=== PATIENT | male | born 1960 | race Caucasian/White ===

== ENCOUNTER → 2020-06-25 13:19 | Outpatient (BNVA) | payer MEDICARE, MEDICAID, SELFPAY | PROVIDERS: PCP Pediatrics; Visit Provider Internal Medicine | DX: E11.65 Type 2 diabetes mellitus with hyperglycemia (principal); E78.5 Hyperlipidemia, unspecified; I10 Essential (primary) hypertension; E55.9 Vitamin D deficiency, unspecified; Z79.4 Long term (current) use of insulin | CPT/HCPCS: 82947; 99202 ==

== ENCOUNTER 2021-08-18 09:04 | Outpatient (REF) | payer MEDICARE, MEDICAID, SELFPAY ==
--- NOTE | 2021-08-18 09:09 | EMG_ITS ---
This is a 60-year-old man with 2-month history of bilateral lower extremity numbness in his toes, which feel frozen. He has a long history of diabetes for 25 years. PHYSICAL EXAMINATION: He is alert and oriented, walks with a cane. He is very uncomfortable. He has absent reflexes in the lower extremities and some atrophy of the foot muscles. IMPRESSION: Peripheral neuropathy. Nerve conduction EMG study: Moderately severe axonal, sensory greater than motor, peripheral neuropathy in the lower extremities diffusely. EMG of the left L4-S1 innervated muscles, is consistent with chronic distal neuropathic changes. MD TISHA Fierro/CARA / [id number]
== END 2021-08-18 09:05 | disposition home or self-care (01) ==
LOC: HO.NEURO 09:04
PROVIDERS: PCP Pediatrics; Visit Provider Internal Medicine
DX: R20.0 Anesthesia of skin (principal); E11.9 Type 2 diabetes mellitus without complications
CPT/HCPCS: 95885; 95911

== ENCOUNTER 2023-01-06 10:17 | Outpatient (REF) | payer MEDICARE, MEDICAID, SELFPAY ==
[2023-01-06 14:17] LABS: MANUAL DIFF FLAG NO
[2023-01-06 14:24] LABS: Basophils Absolute Auto 0.1 X10*3/uL (0.0-0.2); Eosinophils Absolute Auto 0.1 X10*3/uL (0.0-0.4); Eosinophils Percent Auto 1.5 % (0-4); Hematocrit 43.9 % (42.0-52.0); Hemoglobin 13.6 g/dl (14.0-18.0); Imm Gran Abs Auto 0.03 X10*3/uL (0.00-0.03); Imm Gran Pct Auto 0.3 % (0.0-0.4); Lymphocytes Absolute Auto 2.3 X10*3/uL (1.2-4.9); Lymphocytes Percent Auto 24.3 % (20-40); Mean Corpuscular Hemoglobin 24.7 pg (27.0-33.0); Mean Corpuscular Volume 79.8 fL (80.0-98.0); Mean Platelet Volume 11.3 fL (9.4-12.4); Monocytes Absolute Auto 0.5 X10*3/uL (0.1-1.2); Neutrophils Absolute Auto 6.5 x10*3/uL (2.0-8.3); Neutrophils Percent Auto 67.9 % (45-73); Platelet Count 287 X10*3/uL (160-400); Red Cell Distribution Width 14.8 % (11.0-16.0); White Blood Count 9.6 X10*3/uL (4.8-10.8)
[2023-01-06 15:24] LABS: Prostate Specific Antigen 0.61 ng/mL (<0.05-4.0); Vitamin B12 413 pg/mL (200-900)
[2023-01-06 15:29] LABS: Alanine Aminotransferase 28 U/L (0-40); Albumin Level 4.2 g/dL (3.5-5.0); Alkaline Phosphatase 102 U/L (39-117); Anion Gap 21 (12-20); Aspartate Amino Transferase 37 U/L (5-37); Bilirubin Direct 0.2 mg/dL (0.0-0.5); Blood Urea Nitrogen 20 mg/dL (9-16); Calcium 9.9 mg/dL (8.4-10.2); Carbon Dioxide 20 mmol/L (22-29); Chloride 101 mmol/L (96-108); Estimated Glomerular Filt Rate > 60; Glucose Random 197 mg/dL (60-115); Potassium 4.3 mmol/L (3.3-5.1); Sodium 138 mmol/L (135-145); TSH reflex Free T4 1.85 uIU/mL (0.32-4.0); Total Protein 7.4 g/dL (6.5-8.0)
[2023-01-06 15:40] LABS: Bilirubin Total 0.6 mg/dL (0.0-1.0)
== END 2023-01-06 10:18 | disposition home or self-care (01) ==
LOC: HO.CHCLDS 10:17
PROVIDERS: Visit Provider Pediatrics
DX: Z12.5 Encounter for screening for malignant neoplasm of prostate (principal); E11.43 Type 2 diabetes mellitus with diabetic autonomic (poly)neuropathy; Z79.4 Long term (current) use of insulin
CPT/HCPCS: 36415; 80048; 80076; 82607; 84153; 84443; 85025

== ENCOUNTER 2023-01-17 11:33 | Outpatient (REF) | payer MEDICARE, MEDICAID, SELFPAY ==
[2023-01-17 14:31] LABS: Appearance Urine Clear; Color Urine Yellow; Glucose Urine UA >=1000 mg/dL (Negative); Leukocyte Esterase Urine Negative (Negative); Nitrite Urine Negative (Negative); PH 5.5 (5.0-9.0); Specific Gravity - Urine >= 1.030 (1.005-1.025); UMIC TRIGGER UA YES; Urine Blood Negative (Negative); Urine Ketones Trace mg/dL (Negative); Urine Protein Negative (Neg-Trace)
[2023-01-17 14:42] LABS: Bacteria Urine None Seen (None Seen); Hyaline Casts Urine 0-2 /LPF (0-2); RBC Urine 0-2 /HPF (0-2); Squamous Epithelial Cell Urine 0-2 /HPF (0-2); WBC Urine 0-5 /HPF (0-5)
== END 2023-01-17 11:34 | disposition home or self-care (01) ==
LOC: HO.CHCLNP 11:33
PROVIDERS: Visit Provider Pediatrics
DX: R41.82 Altered mental status, unspecified (principal)
CPT/HCPCS: 81001; 87086

== ENCOUNTER 2023-04-14 11:08 | Outpatient (REF) | payer MEDICARE, MEDICAID, SELFPAY ==
[2023-04-17 05:11] LABS: HBS Num1 0.19 mIU/mL (0-7.99); HBsAGNum1 0.43 S/CO (0.00-0.99); Hepatitis B Core Antibody Nonreactive (Nonreactive); Hepatitis B Surface Antigen Negative (Negative); ~HepC Num1 0.11 S/CO (0.00-0.79); ~Hepatitis A Antibody IgM Nonreactive (Nonreactive); ~Hepatitis B Surface Antibody NONREACTIVE (Nonreactive); ~Hepatitis C Antibody Nonreactive (Nonreactive)
[2023-04-17 22:58] LABS: Rubella IgG Antibody 1.07 Index
== END 2023-04-14 11:09 | disposition home or self-care (01) ==
LOC: HO.CHCLDS 11:08
PROVIDERS: Family Medicine; Visit Provider Pediatrics
DX: Z01.84 Encounter for antibody response examination (principal); Z11.59 Encounter for screening for other viral diseases; Z72.89 Other problems related to lifestyle
CPT/HCPCS: 36415; 86704; 86706; 86709; 86735; 86762; 86765; 86787; 86803; 87340

== ENCOUNTER 2024-08-09 11:57 | Outpatient (REF) | payer MEDICARE, MEDICAID, SELFPAY ==
--- OUTSIDE RECORDS SUMMARY | 2024-08-09 14:16 | XMS_ITS | Encounter Summary ---
Author Organization [employer] Address [address] [facility] 7t [place] [address] Care Team Providers Care Rapid Transit Operator Name Role Phone Cristela Hill MD Primary Care Provider [phone] Reason for Visit * Reason Onset Date Comments ER Follow-up 05/22/2023 Encounter Details Date Type Department Care Team ([facility] Contact Info) Description 05/22/2023 Telephone [facility] [address] [place] [address] Cristela Hill MD [address] [place] [address] ER Follow-up Social History Tobacco Use Types Packs/Day Years Used Date Smoking Tobacco: Never Passive Smoke Exposure: Never Smokeless Tobacco: Never Alcohol Use Standard Drinks/Week Comments Never 0 (1 standard drink = 0.6 oz pur e alcohol) Depression Answer Date Recorded Patient Health Questionnaire-9 Score 0 06/22/2022 Housing Stability Answer Date Recorded What is your housing situation today? I have jacqeus bai 03/28/[address] you li ve. Do you have problems with any of the following? None of the above 03/28/2023 Food Insecurity Answer Date Recorded Within the past 12 months, y ou worried that your food would run out before you got money to buy more: Never True 03/28/2023 Within the past 12 months,th e food you bought just didn't last and you didn't have enough money to get more: Never True Transportation Answer Date Recorded In the past 12 months, has l ack of transportation kept you from medical appts, meetings, work or from getting things needed for daily living? No 03/28/2023 Utilities Answer Date Recorded In the past 12 months, has t he electric, gas, oil or water company threatened to shut off services in your home? No 03/28/2023 Depression Answer Date Recorded Patient Health Questionnaire-2 Score 0 06/22/2022 Sex and Gender Information Value Date Recorded Sex Assigned at Male 04/11/2022 10:16 AM EDT Legal Sex Male 10:16 AM EDT Gender Identity Male 04/11/2022 10:16 AM EDT Sexual Orientation Straight 04/11/2022 10 :16 AM EDT documented as of this encounter Miscellaneous Notes * Telephone Encounter - Nicole Luong RN - 05/23/2023 2:26 PM EST Returned call to Pancho at [facility] regarding message below. Pancho states pt needs to f/u with PCP regarding his recent ED visit on 05/19/23 for CP. Pt was instructed to f/u with Cardiology and Pancho is calling cardio now to schedule a f/u. Pancho requested pt to be seen sooner than 06/02/23 as pt needs other DME's as well. Pancho is requesting an rx for compression stockings, DM shoes, and a PT referral for W/C eval. Pancho informed message would be sent to PCP to get the process started prior to appt but advised Pancho to call office back if pt is in need of anything else. Pancho agrees with plan and agrees to sooner appt with PCP for 05/26/23. * Telephone Encounter - Per Mendiola - 05/22/2023 12:30 PM EST Tc from Estuardo calling from [facility] to report ED visit on : Date: 05/19/23 Hospital: [facility] Seen for: Chest Pain and cold sweats Any questions please contact Estuardo at [phone] documented in this encounter Plan of Treatment Not on file documented as of this encounter Visit Diagnoses Not on filedocumented in this encounter Additional Health Concerns Assessment Noted Time PHQ-9 Depression Total Score: 0 06/22/19 9:46 AM EST documented as of this encounter Care Teams Rapid Transit Operator Relationship Specialty Start Date End Date Cristela Hill MD [address] [place] [id number] PCP - General Family Medicine 06/12/18 [facility] 12/31/11 documented as of this encounter
--- OUTSIDE RECORDS SUMMARY | 2024-08-09 14:16 | XMS_ITS | Encounter Summary ---
Author Organization [employer] Address [address] [facility] 7t [place] [address] Care Team Providers Care Bias Binding Folder Name Role Phone Cristela Hill MD Primary Care Provider [phone] Reason for Visit * Reason Onset Date Comments Call Back Request 06/28/2023 Encounter Details Date Type Department Care Team ([facility] Contact Info) Description 06/28/2023 Telephone [facility] PEDS [address] [place] [address] Cristela Hill MD [address] [place] [address] Call Back Request Social History Tobacco Use Types Packs/Day Years Used Date Smoking Tobacco: Never Passive Smoke Exposure: Never Smokeless Tobacco: Never Alcohol Use Standard Drinks/Week Comments Never 0 (1 standard drink = 0.6 oz pur e alcohol) Depression Answer Date Recorded Patient Health Questionnaire-9 Score 0 06/22/2022 Housing Stability Answer Date Recorded What is your housing situation today? I have jacques bai 03/28/[address] you [...] encounter Miscellaneous Notes * Telephone Encounter - Morelia García RN - 06/29/2023 5:01 PM EST TC placed back to Celina, caddie supervisor at [facility]. Celina states patient is feeling better and he is not sure how long patient is supposed to continue taking Mucinex. Advised that if patient is no longer coughing or having congestion, post-nasal drip, or runny nose without the medication, patient can likely stop taking it. However, as long as these symptoms continue, he may benefit from using it.Celina expressed understanding and stated that they got one refill automatically from the pharmacy but will ask the pharmacy to hold other refills for now as symptoms seem to be resolving. He is awarethat there are 11 refills if needed. No other questions or concerns. Routing to Dr. Hill so she is aware. Tc from celina with [facility] requesting a call in regards to Dextromethorphan- guaiFENesin (Mucinex DM) 30-600 MG tablet sustained-release 12 hour. Please contact celina at [phone] * Telephone Encounter - Charis Stearns - 06/28/2023 1:35 PM EST Tc from celina with [facility] requesting a call in regards to Dextromethorphan- guaiFENesin (Mucinex DM) 30-600 MG tablet sustained-release 12 hour. Please contact celina at [phone] documented in this encounter Plan of Treatment Not on file documented as of this encounter Visit Diagnoses Not on filedocumented in this encounter Additional Health Concerns Assessment Noted Time PHQ-9 Depression Total Score: 0 06/22/19 23 9:46 AM EST documented as of this encounter Care Teams Bias Binding Folder Relationship Specialty Start Date End Date Cristela Hill MD [address] [place] [address] PCP - General Family Medicine 06/12/18 [facility] 12/31/11 documented as of this encounter
--- OUTSIDE RECORDS SUMMARY | 2024-08-09 14:16 | XMS_ITS | Encounter Summary ---
Author Organization [employer] Address [address] [facility] 7 [place] [address] Care Team Providers Care Livestock Farm Manager Name Role Phone Cristela Hill MD Primary Care Provider [phone] Reason for Visit * Reason Onset Date Comments Durable Medical Equipment 06/24/2022 Encounter Details Date Type Department Care Team (Late st Contact Info) Description 06/24/2022 Telephone [facility] [address] [place] [address] Cristela Hill MD [address] [place] [address] Durable Medical Equipment Social History Tobacco Use Types Packs/Day Years Used Date Smoking Tobacco: Never Smokeless Tobacco: Never Alcohol Use Standard Drinks/Week Comments Never 0 (1 standard drink = 0.6 oz pur e alcohol) Depression Answer Date Recorded Patient Health Questionnaire-9 Score 0 06/22/2022 Depression Answer Date Recorded Patient Health Questionnaire-2 Score 0 06/22/2022 Sex and Gender Information Value Date Recorded Sex Assigned at Male 04/11/2022 10:16 AM EDT Legal Sex Male 10:16 AM EDT Gender Identity Male 04/11/2022 10:16 AM EDT Sexual Orientation Straight 04/11/2022 10 :16 AM EDT documented as of this encounter Miscellaneous Notes * Telephone Encounter - Earlene Carter LPN - 06/29/2022 10:30 AM EST Mobile Home Park Manager spoke with BRENDA Orona regarding message below pt is not requesting a lift chair but a recliner , pt will need notes of necessity for this DME and also DX for this ,pt is receiving a walkers with wheels from [facility] please advise * Telephone Encounter - Eliehilary Reeseos - 06/24/2022 3:03 PM EST Tc from ritu with [facility] requesting a lift chair, Ritu stated needs 2 dx and how long will pt will be needing it , ritu is requesting it to be sent to [facility] Please contact ritu at [phone] documented in this encounter Plan of Treatment Not on file documented as of this encounter Visit Diagnoses Not on filedocumented in this encounter Additional Health Concerns Assessment Noted Time PHQ-9 Depression Total Score: 0 06/22/19 23 9:46 AM EST documented as of this encounter Care Teams Livestock Farm Manager Relationship Specialty Start Date End Date Cristela Hill MD [address] [place] [id number] PCP - General Family Medicine 06/12/18 [facility] 12/31/11 documented as of this encounter
--- OUTSIDE RECORDS SUMMARY | 2024-08-09 14:16 | XMS_ITS | Encounter Summary ---
Author Organization [employer] Address [address] [place] [address] [address] [place] [address] Care Team Providers Care Mine Analyst Name Role Phone Cristela Hill MD Primary Care Provider [phone] Reason for Visit * Reason Onset Date Comments Medication Question 08/30/2022 Encounter Details Date Type Department Care Team ([facility] st Contact Info) Description 08/30/2022 Telephone [facility] MED & PEDS [address] [place] [address] Cristela Hill MD [address] [place] [address] Medication Question Social History Tobacco Use Types Packs/Day Years [...] Orientation Straight 04/11/2022 10 :16 AM EDT COVID-19 Exposure Response Date Recorded In the last 10 days, have yo u been in contact with someone who was confirmed or suspected to have Coronavirus/COVID-19? No / Unsure 09/02/2022 9:16 AM EDT documented as of this encounter Miscellaneous Notes * Telephone Encounter - Devin Stearns RN - 08/31/2022 9:28 AM EDT Call to Jie, visiting nurse. State during last office visit, Levemir was changed to 100 units in the AM and 20 units at bedtime if the sugars were above 200. She is requesting Rx be sent to pharmacyas pt is running out and she is also requesting syringes. Pt uses [facility]. Pt is scheduled for HDF on 09/02/22. In need of eliquis 5mg. Noted in office note from 06/2022, levemir 100mg in the AM, added 15 units at bedtime if blood sugars above 200. Per Jie, was present during the televisit and confirmed the order of 20 units at bedtime if sugarsabove 200, Advised will forward to PCP to clarify and send Rx to pharmacy as requested. * Telephone Encounter - Joseph Kellogg - 08/30/2022 1:48 PM EDT Tc from Jie informing that pt script was change for Levemir for twice a day and syringes as well and will need a new script down, Jie states that PCP was the one that change script. Please contact Jie for more information at [phone] documented in this encounter Plan of Treatment Not on file documented as of this encounter Visit Diagnoses Not on filedocumented in this encounter Additional Health Concerns Assessment Noted Time PHQ-9 Depression Total Score: 0 06/22/19 9:46 AM EST documented as of this encounter Care Teams Mine Analyst Relationship Specialty Start Date End Date Cristela Hill MD [address] [place] [id number] PCP - General Family Medicine 06/12/18 [facility] 12/31/11 documented as of this encounter
--- OUTSIDE RECORDS SUMMARY | 2024-08-09 14:16 | XMS_ITS | Encounter Summary ---
Author Organization [employer] Address [address] [facility] 7t [place] [address] Care Team Providers Care Head Grease Maker Name Role Phone Cristela Hill MD Primary Care Provider [phone] Reason for Visit * Reason Onset Date Comments Medication Question 05/10/2023 Encounter Details Date Type Department Care Team ([facility] Contact Info) Description 05/10/2023 Telephone [facility] MED & PEDS [address] [place] [address] Cristela Hill MD [address] [place] [address] Medication Question Social History Tobacco Use Types [...] Telephone Encounter - Nicole Luong RN - 05/11/2023 1:35 PM EST Order generated and sent to [facility]. Confirmation received. * Telephone Encounter - Arielle Chang - 05/11/2023 1:06 PM EST Tc from Cel[facility] returning call. Parts Counter Clerk informed previous notes. States will need a written notes stating it is okay to discontinue Eliquis. * Telephone Encounter - Nicole Luong RN - 05/10/2023 11:38 AM EST Returned call to A worker regarding PCP ok to discontinue Eliquis. LVM to return call to nurses. * Telephone Encounter - Charis Stearns - 05/10/2023 10:32 AM EST Tc from celina with [facility] requesting a call in regards to pt having an appointment with blackjack pit boss on 05/02. Pt was advised to stop taking eliquis and would like PCP opinion. Please contact celina at [phone] documented in this encounter Plan of Treatment Not on file documented as of this encounter Visit Diagnoses Not on filedocumented in this encounter Additional Health Concerns Assessment Noted Time PHQ-9 Depression Total Score: 0 06/22/19 23 9:46 AM EST documented as of this encounter Care Teams Head Grease Maker Relationship Specialty Start Date End Date Cristela Hill MD [address] [place] [address] PCP - General Family Medicine 06/12/18 [facility] 12/31/11 documented as of this encounter
--- OUTSIDE RECORDS SUMMARY | 2024-08-09 14:16 | XMS_ITS | Clinical Summary ---
Author Organization [employer] Address [address] [facility] [address] [place] [address] Care Team Providers Care Pattern Duplicator Name Role Phone Cristela Hill MD Primary Care Provider [phone] Allergies Active Allergy Reactions Criticality Noted Date Comments Chicken Allergy Rash Low 03/07/2022 Codeine Rash,Unknown Low 06/08/2010 Fish Allergy Rash Low 03/07/2022 Oxycodone Low 03/18/2022 Oxycodone-Acetaminophen Rash Low 07/10/2020 Shellfish Allergy 03/08/2022 lobster Medications sertraline (Zoloft) 100 MG tablet Take 100 mg by mouth in the morning. 023 Active albuterol 108 (90 Base) MCG/ACT inhaler TAKE 2 PUFFS EVERY 4 TO 6 HOURS NEEDED 022 Active ergocalciferol (Vitamin D2) 1.25 MG (46820 UT) capsule TAKE 1 CAPSULE BY ORAL ROUTE EVERY WEEK FOR 15 WEEKS 022 Active famotidine (Pepcid) 20 MG tablet TAKE 1 TABLET BY ORAL ROUTE 2 TIMES EVERY DAY 023 Active tamsulosin (Flomax) 0.4 MG 24 hr capsule TAKE 1 CAPSULE BY MOUTH EVERY DAY 023 Active calcipotriene (Dovonex) 0.005 % cream Apply topically 2 times daily. 60 g 3 023 Active Corlanor 5 MG tablet 023 Active glucose blood (FREESTYLE LITE) test strip Test blood sugar 3 times daily 100 each 11 023 Active bacitracin 500 UNIT/GM ointment Apply topically 2 times daily. 14 g 023 Active Insulin Syringe-Needle U-100 30G X 3/8 0.5 ML misc Use Tid for insulin injection 100 each Active dulaglutide (Trulicity) 1.5 MG/0.5ML solution pen-injector Inject 1.5 mg under the skin 1 (one) time per week. 4 each Active Alcohol Swabs (Alcohol Pads) 70 % pads Use tid when checking blood sugars 100 each Active nystatin (Nystop) 869246 UNIT/GM powderIndicati ons:Pruritic intertrigo Apply topically 2 times daily. 30 g 024 2024 Active ketoconazole (NIZOral) 2 % shampoo APPLY SMALL AMOUNT TO SCALP AND WASH HAIR THREE TIMES A WEEK 120 mL 1 Active Additional Information Patient not taking.Reported on 07/05/2024 metFORMIN XR (Glucophage-XR ) 500 MG 24 hr tablet TAKE 2 TABLETS BY MOUTH TWICE DAILY IN THE MORNING AND EVENING 120 tablet 5 Active Acetaminophen 500 MG capsule TAKE 1 CAPSULE BY MOUTH EVERY 8 HOURS IF NEEDED FOR PAIN OR FEVER 90 capsule 11 Active atorvastatin (Lipitor) 80 MG tablet TAKE 1 TABLET BY MOUTH EVERY DAY 90 tablet 1 Active aspirin 81 MG EC tabletIndicati ons:Type 2 diabetes mellitus with diabetic autonomic neuropathy, with long-term current use of insulin (CMS/HCC) Take 1 tablet (81 mg) by mouth Once per day. 90 tablet 3 Active nitroglycerin (Nitrostat) 0.[address] 1 tablet (0.4 mg) under the tongue every 5 (five) minutes if needed for chest pain. TAKE 1 TABLET BY SUBLINGUAL ROUTE EVERY 5 MINUTES NEEDED FOR CHEST PAIN NEEDED MAX 3 TIMES , IF NO RELIEF CALL 911 25 tablet 11 024 2024 Active gabapentin (Neurontin) 300 MG capsule Take 1 capsule orally at bedtime for neuropathy 30 capsule 5 024 Active Comfort Touch Plus Lancets 30G miscIndication s:Type 2 diabetes mellitus with diabetic autonomic neuropathy, with long-term current use of insulin (CMS/HCC) USE 1 EACH BY OTHER ROUTE 2 TIMES DAILY. 100 each 10 Active finasteride (Proscar) 5 MG tablet TAKE 1 TABLET (5 MG) BY MOUTH IN THE MORNING. DO NOT CRUSH, CHEW, OR SPLIT. 30 tablet 2 Active Ultracare Insulin Syringe 30G X 5/16 1 ML misc USE THREE TIMES DAILY FOR INSULIN INJECTION 100 each Active pregabalin (Lyrica) 100 MG capsule Take 1 capsule (100 mg) by mouth 2 times daily. 60 capsule 025 2025 Active magnesium oxide (Mag-Ox) 400 (240 Mg) MG tablet TAKE 1 TABLET (400 MG) BY MOUTH ONCE PER DAY. 30 tablet 1 Active pantoprazole (ProtoNix) 40 MG EC tabletIndicati ons:Orthostati c hypotension,Ch ronic superficial gastritis without bleeding TAKE 1 TABLET BY MOUTH EVERY MORNING 30 tablet 3 Active nateglinide (Starlix) 60 MG tabletIndicati ons:Type 2 diabetes mellitus with diabetic autonomic neuropathy, with long-term current use of insulin ([facility]) TAKE 1 TABLET (60 MG) BY MOUTH 3 TIMES DAILY. 90 tablet 1 025 Active midodrine (Proamatine) 5 MG tabletIndicati ons:Orthostati c hypotension,Ch ronic superficial gastritis without bleeding TAKE 1 TABLET (5 MG) BY MOUTH EVERY 8 (EIGHT) HOURS. 90 tablet 025 Active ammonium lactate (Lac-Hydrin) 12 % lotion Apply topically if needed. Active insulin pen needle 31G X 8 mm miscIndication s:Type 2 diabetes mellitus with diabetic autonomic neuropathy, with long-term current use of insulin ([facility]) Use as instructed 100 each 025 2025 Active insulin glargine (Basaglar KwikPen) 100 UNIT/ML pen Inject 100 units in AM subcutaneous and 20 units in PM 3 mL Active Lancets miscIndication s:Type 2 diabetes mellitus with diabetic autonomic neuropathy, with long-term current use of insulin (CMS/HCC) Use 1 lancet tid to check blood sugar 100 each Active glucose blood test stripIndicatio ns:Type 2 diabetes mellitus with diabetic autonomic neuropathy, with long-term current use of insulin ([facility]) Check blood sugars tid 100 each 12 025 2025 Active ammonium lactate (Lac-Hydrin Five) 5 % lotion Apply 1 application topically 2 times daily. 222 mL 1 023 2024 Discontinued ammonium lactate (Lac-Hydrin) 5 % lotion Apply topically if needed for dry skin. 222 mL 11 023 2024 Discontinued Ultracare Pen Scandia 31G X 8 MM misc Use up to 5 times per day as directed 100 each 11 023 2024 Discontinued(I neffective) azithromycin (Zithromax) 250 MG tablet Take 2 tabs day and then 1 tab daily 6 tablet 024 2024 Discontinued(T herapy completed) Dextromethorph an-guaiFENesin (Mucinex DM) 30-600 MG tablet sustained-rele ase 12 hour Use 1 tab TID 28 tablet 024 2024 Discontinued(T herapy completed) insulin glargine (Lantus) 100 UNIT/ML injection Inject 100 units qhs 10 mL 12 024 2024 Discontinued(C ost of medication) insulin lispro (HumaLOG KWIKPEN) 200 UNIT/ML solution pen-injector pen Inject 12 units subcutaneous 3 times a day 1 each 11 024 2024 Discontinued(C ost of medication) insulin glargine (Lantus) 100 UNIT/ML injection GIVE 100 UNITS EVERY MORNING AND 20 UNITS AT BEDTIME 10 mL 11 024 2024 Discontinued(C ost of medication) finasteride (Proscar) 5 MG tablet TAKE 1 TABLET (5 MG) BY MOUTH IN THE MORNING. DO NOT CRUSH, CHEW, OR SPLIT. 30 tablet 3 024 2024 Discontinued pantoprazole (ProtoNix) 40 MG EC tabletIndicati ons:Orthostati c hypotension,Ch ronic superficial gastritis without bleeding TAKE 1 TABLET BY MOUTH EVERY MORNING 30 tablet 4 024 2024 Discontinued FreeStyle lancetsIndicat ions:Type 2 diabetes mellitus with diabetic autonomic neuropathy, with long-term current use of insulin ([facility]) 1 each by Other route 2 times daily. 100 each 11 024 2024 Discontinued magnesium oxide (Mag-Ox) 400 (240 Mg) MG tablet TAKE 1 TABLET (400 MG) BY MOUTH ONCE PER DAY. 30 tablet 2 024 2024 Discontinued nateglinide (Starlix) 60 MG tabletIndicati ons:Type 2 diabetes mellitus with diabetic autonomic neuropathy, with long-term current use of insulin (CMS/HCC) TAKE 1 TABLET (60 MG) BY MOUTH 3 TIMES DAILY. 90 tablet 2 024 2024 Discontinued midodrine (Proamatine) 5 MG tabletIndicati ons:Orthostati c hypotension,Ch ronic superficial gastritis without bleeding TAKE 1 TABLET (5 MG) BY MOUTH EVERY 8 (EIGHT) HOURS. 90 tablet 024 2024 Discontinued Lantus 100 UNIT/ML injection GIVE 100 UNITS EVERY MORNING AND 20 UNITS AT BEDTIME 10 mL 9 025 2024 Discontinued(C ost of medication) pregabalin (Lyrica) 100 MG capsule TAKE 1 CAPSULE (100 MG) BY MOUTH 2 TIMES DAILY. 60 capsule 025 2024 Discontinued(R eorder (will not trigger notification to Pharmacy)) insulin detemir (Levemir) 100 UNIT/ML injectionIndic ations:Type 2 diabetes mellitus with diabetic autonomic neuropathy, with long-term current use of insulin ([facility]) Give 100 units QAM subcutaneously and 20 units at bedtime 10 mL 12 025 2024 Discontinued(C ost of medication) Active Problems Problem Noted Date Diagnosed Date Diastasis recti 12/18/2023 Epigastric pain 11/15/2023 Umbilical hernia without obstruction and without gangrene 11/15/2023 Assessment & Plan (11/16/2023 8:50 AM EDT): Ordering US of Abdominal wall for further evaluation of hernia. Referral to Surgeon for further treatment. Depression 2022 Diabetic neuropathy 2022 GERD (gastroesophageal reflux disease) History of implantable cardi overter-defibrillator (ICD) placement 09/02/2022 Chronic hypotension 04/01/2022 Hyperlipidemia, mixed 07/10/2020 Overview (01/21/2024): Last Assessment & Plan: No recent lipid panel. Continue high intensity statin therapy. This should be repeated. Goal LDL less than 70 given coronary disease. Obstructive sleep apnea syndrome 07/07/2017 Chronic combined systolic and diastolic heart fa ilure 12/29/2016 Osteoarthritis 08/14/2015 Atherosclerosis of coronary artery 01/03/2014 Diabetes type 2, uncontrolled 04/27/2012 Obesity 09/06/2011 Pure hypercholesterolemia 09/06/2011 Diabetes mellitus 09/06/2011 Encounters Date Type Department Care Team Description 08/09/2024 10:00 AM EST Office Visit [facility] [address] [place] [address] Cristela Hill MD Encounter for immunization (Primary Dx); Type 2 diabetes mellitus with diabetic autonomic neuropathy, with long-term current use of insulin (CMS/[facility]); Polyuria; Dietary counseling; Exercise counseling; Chronic combined systolic and diastolic heart failure (CMS/HCC); Chronic hypotension; Diastasis recti; Umbilical hernia without obstruction and without gangrene; History of implantable cardioverter-defibril lator (ICD) placement; Hyperlipidemia, mixed 08/09/2024 Travel 08/05/2024 Refill [facility] [address] [place] [address] Cristela Hill MD Orthostatic hypotension; Chronic superficial gastritis without bleeding; Type 2 diabetes mellitus with diabetic autonomic neuropathy, with long-term current use of insulin (CMS/HCC) 07/30/2024 Refill [facility] [address] [place] [address] Cristela Hill MD 07/30/2024 Refill [facility] [address] [place], [place] [phone] Cristela Hill MD 07/29/2024 Refill [facility] [address] [place], [place] [phone] Zoe Singh FNP 07/27/2024 Refill [facility] [address] [place] [address] Cristela Hill MD 07/25/2024 Patient Outreach [facility] [address] [place] [phone] Cristela Hill MD Pre-visit Planning (Pre visit planning LVM ) 07/16/2024 Refill [facility] [address] [place] [address] Cristela Hill MD Type 2 diabetes mellitus with diabetic autonomic neuropathy, with long-term current use of insulin (CMS/HCC) 07/15/2024 Telephone [facility] [address] [place] [phone] Kareen Willett RN Results (If BG has been) 07/09/2024 1:15 PM EST Telemedicine [facility] [address] [place] [address] Jadon Peter MD Hypoglycemia (Primary Dx) 07/09/2024 Travel 07/09/2024 Telephone [facility] [address] [place] [address] Cristela Hill MD Nurse Triage 07/03/2024 Orders Only [facility] [address] [place] [address] Cristela Hill MD Type 2 diabetes mellitus with diabetic autonomic neuropathy, with long-term current use of insulin (CMS/HCC) (Primary Dx) 07/03/2024 Telephone [facility] [address] [place] [address] Sarah Dumont MD Insulin change 06/28/2024 Refill [facility] [address] [place] [address] Jadon Peter MD 06/28/2024 Telephone [facility] [address] [place] [address] Cristela Hill MD CRITICAL RESULT 06/24/2024 Refill [facility] [address] [place] [address] Cristela Hill MD 06/21/2024 Telephone [facility] [address] [place] [address] Tiffany Howard MD 06/20/2024 Orders Only [facility] [address] [place] [address] Tiffany Howard MD Type 2 diabetes mellitus with diabetic autonomic neuropathy, with long-term current use of insulin ([facility]) (Primary Dx) 06/20/2024 Telephone [facility] [address] [place] [address] Cristela Hill MD Referral 06/10/2024 Refill [facility] [address] [place] [address] Cristela Hill MD Orthostatic hypotension; Chronic superficial gastritis without bleeding 05/28/2024 Telephone [facility] [address] [place] [address] Cristela Hill MD Chart Prep 05/21/2024 Refill [facility] [address] [place] [address] Cristela Hill MD 05/15/2024 Telephone [facility] [address] [place] [address] Cristela Hill MD Durable Medical Equipment 05/13/2024 Refill [facility] [address] [place] [phone] Cristela Hill MD Type 2 diabetes mellitus with diabetic autonomic neuropathy, with long-term current use of insulin ([facility]); Orthostatic hypotension; Chronic superficial gastritis without bleeding from Last 3 Months Immunizations Name Administration Dates Next Due Hep B, adult 08/10/2023,05/18/2023,04/20/2023 Influenza injectable quadriv alent IIV4 with preservative 02/28/2019,03/28/2018 Influenza injectable quadriv alent preservative free 04/11/2023,04/01/2022,03/18/2021,04/08,05/25/2016,03/26/2015 Influenza, IIV3, injectable 04/24/2014 Influenza, Split (incl. krupa fied surface antigen) 02/22/2013,04/27/2012 Influenza, seasonal, injecta ble, preservative free 08/09/2024 Pneumococcal Conjugate PCV 13 07/25/2014 Pneumococcal Polysaccharide PPSV23 08/28/2006 Tdap 05/25/2016 Zoster, Recombinant 04/30/2019,02/28/2019 Social History Tobacco Use Types Packs/Day Years Used Date Smoking Tobacco: Never Passive Smoke Exposure: Never Smokeless Tobacco: Never Tobacco Cessation:Counseling Given: Not Answered Alcohol Use Standard Drinks/Week Comments Never 0 (1 standard drink = 0.6 oz pur e alcohol) Depression Answer Date Recorded Patient Health Questionnaire-9 Score 0 06/22/2022 Housing Stability Answer Date Recorded What is your housing situation today? I have jacques bai 01/09/[address] you li ve. Do you have problems with any of the following? None of the above 01/09/2024 Food Insecurity Answer Date Recorded Within the past 12 months, y ou worried that your food would run out before you got money to buy more: Never True 01/09/2024 Within the past 12 months,th e food you bought just didn't last and you didn't have enough money to get more: Never True Transportation Answer Date Recorded In the past 12 months, has l ack of transportation kept you from medical appts, meetings, work or from getting things needed for daily living? No 01/09/2024 Utilities Answer Date Recorded In the past 12 months, has t he electric, gas, oil or water company threatened to shut off services in your home? No 01/09/2024 Depression Answer Date Recorded Patient Health Questionnaire-2 Score 0 06/22/2022 Internet Access Answer Date Recorded Internet Access Q1 Yes 02/09/2024 Internet Access Q2 Not on file 02/09/2024 Sex and Gender Information Value Date Recorded Sex Assigned at Male 04/11/2022 10:16 AM EDT Legal Sex Male 10:16 AM EDT Gender Identity Male 04/11/2022 10:16 AM EDT Sexual Orientation Straight 04/11/2022 10 :16 AM EDT Last Filed Vital Signs Vital Sign Reading Time Taken Comments Blood Pressure 100/68 08/09/2024 10:17 AM EST Pulse 100 08/09/2024 10:17 AM EST Temperature 35.9 ??C (96.7 ??F) 08/09/2024 10:[address] Respiratory Rate 20 08/09/2024 10:17 AM EST Oxygen Saturation 97% 08/09/2024 10:17 AM EST Inhaled Oxygen Concentration - - Weight 98.6 kg (217 lb 5 oz) 08/09/2024 10:17 AM EST Height 170.2 cm (5' 7 ) 08/09/2024 10:17 AM EST Body Mass Index 34.04 08/09/2024 10:17 AM EST Plan of Treatment Health Maintenance Due Date Last Done Comments CT Colonography 1960 Colonoscopy 1960 Colorectal Cancer Screening 1960 FIT DNA/Cologuard 1960 FIT 1960 FOBT 1960 HIV Screening 1960 Sigmoidoscopy 1960 Eye Exam 1970 Pneumococcal Vaccine: 50+ Years (3 of 3 - PCV20 or PCV21) 07/25/2019 07/25/2014, 08/28/2006 RSV Patients and Patients Aged 60 years or older (1 - Risk 60-74 years 1-dose series) 2020 Lipid Panel 04/07/2022 04/07/2021, 03/31/2020 Diabetes: Urine Protein Screening 04/08/2022 04/08/2021, 04/03/2020 Depression Screening 06/22/2023 06/22/2022, 06/22/19 COVID-19 Vaccine ( season) 2024 06/30/2021, 08/26/2020, 07/29/2020 Tobacco Screening 08/25/2024 08/26/2023 Diabetes: Hemoglobin A1C 11/06/2024 025, 01/18/2024, 07/26/2023, Additional history exists SDOH Screening 01/08/2025 01/09/2024 Alcohol/Substance Use Screening 08/09/2025 08/09/2024 Diabetes: Foot Exam 08/09/2025 08/09/2024, 08/09/2024, 08/09/2024, Additional history exists DTaP/Tdap/Td Vaccines (2 - Td or Tdap) 05/25/2026 05/25/2016 Zoster Vaccines Completed 04/30/2019, 02/28/2019 Hepatitis C Screening Completed 04/14/2023 Hepatitis B Vaccines Completed 08/10/2023, 05/18/2023, 04/20/2023 Influenza Vaccine Completed 08/09/2024, , 04/01/2022, Additional history exists HIB Vaccines Aged Out No longer eligi ble based on patient's age to complete this topic HPV Vaccines Aged Out No longer eligi ble based on patient's age to complete this topic Hepatitis A Vaccines Aged Out No long er eligible based on patient's age to complete this topic IPV Vaccines Aged Out No longer eligi ble based on patient's age to complete this topic Meningococcal Vaccine Aged Out No josefina lou eligible based on patient's age to complete this topic RSV under 20 months Aged Out No longe r eligible based on patient's age to complete this topic Rotavirus Vaccines Aged Out No longer eligible based on patient's age to complete this topic Procedures Procedure Name Priority Date/Time Associated Diagnosis Comments POCT GLYCATED HEMOGLOBIN, TOTAL Routine 08/09/2024 10:36 AM EST Type 2 diabetes mellitus with diabetic autonomic neuropathy, with long-term current use of insulin ([facility]) POCT GLUCOSE Routine 08/09/2024 10:36 AM EST Type 2 diabetes mellitus with diabetic autonomic neuropathy, with long-term current use of insulin ([facility]) HEPATITIS PANEL, GENERAL Routine 04/14/2023 11:15 AM EDT ALBUMIN, RANDOM URINE W/CREATININE Routine 04/08/2021 7:00 PM EDT LIPID PANEL, STANDARD Routine 04/07/2021 9:05 AM EDT from Last 3 Months or Most Recently Relevant to Health Maintenance Results * (ABNORMAL) POCT HGB A1C (08/09/2024 10:36 AM EST) Pathologist [facility] Hemoglobin A1C 10.0(A) 4.0 - 6.0 % QC Media Lot # [id number] Lot# Expiration Date 42 Blood 08/09/2024 10:3 6 AM EST Cristela Hill MD POINT OF CARE TEST ENTER/EDIT ORDERABLES Final Result * (ABNORMAL) POCT Glucose (08/09/2024 10:36 AM EST) Pathologist [facility] Glucose Blood, POC 369(A) 60 - 200 mg/dL QC Media Lot # [id number] Lot# Expiration Date Blood Capillary blood specimen / Unknown 08/09/2024 10:36 AM EST Cristela Hill MD POINT OF CARE TEST ENTER/EDIT ORDERABLES Final Result * Hepatitis Panel, General (04/14/2023 11:15 AM EDT) Pathologist [facility] Hepatitis A IgM Nonreactive Nonreactive [facility] Comment:IgM antibodies to SOUZA V not detected; does not exclude earlyacute or recovered HAV infection. ~Hepatitis B Surface Antibody NONREACTIVE Nonreactive [facility] Comment:Nonreactive: < 8.00 mIU/mL Hepatitis B Core Antibody Nonreactive Nonreactive [facility] Hepatitis C Antibody Nonreactive Nonreactive [facility] Comment:Antibodies to HCV no t detected; does not exclude early acuteHCV infection. Hepatitis B Surface Ag Negative Negative [facility] 04/14/2023 11:1 5 AM EDT 04/14/2023 2:30 PM EDT Kylie Britt MD LAB BLOOD ORDERABLES Final Re sult [facility] [address] [place] [phone] * ALBUMIN, RANDOM URINE W/CREATININE (04/08/2021 7:00 PM EDT) Microalbumin Urine 0.9 See Note: mg/dL [facility] Comment: Reference Range: ?? Reference Range Not established Microalb/Creat Ratio 8 <30 mcg/mg creat [facility] Comment: ?? The ADA defines abnormalities in albumin excretion as follows: ?? Albuminuria Category ?Result (mcg/mg creatinine) ?? Normal to Mildly increased ?? <30 Moderately increased ? 30-299 ?? Severely increased ? > OR = 300 ?? The ADA recommends that at least two of three specimens collected within a 3-6 month period be abnormal before considering a patient to be within a diagnostic category. Creatinine, Urine 110 20 - 320 mg/dL [facility] 04/08/2021 7:00 PM EDT us Cristela Hill MD LAB URINE ORDERABLES Final Re sult [facility] [address] * (ABNORMAL) LIPID PANEL, STANDARD (04/07/2021 9:05 AM EDT) Chol/HDLC Ratio 2.8 <5.0 (calc) [facility] Cholesterol, Total 104 <200 mg/dL [facility] HDL Cholesterol 37(L) > OR = 40 mg/dL [facility] LDL Cholesterol 43 mg/dL (calc) [facility] Comment: Reference range: <100 ?? Desirable range <100 mg/dL for primary prevention; ?? <70 mg/dL for patients with CHD or diabetic patients ?? with > or = 2 CHD risk factors. ?? LDL-C is now calculated using the Vikram ?? calculation, which is a validated novel method providing ?? better accuracy than the Friedewald equation in the ?? estimation of LDL-C. ?? Dane HYDE et al. SANJAY. 2013;310(19): 2406-5317 ?? (http://Sysorex.ME911/faq/ZVK460) Non-HDL Cholesterol 67 <130 mg/dL (calc) [facility] Comment: For patients with diabetes plus 1 major ASCVD risk ?? factor, treating to a non-HDL-C goal of <100 mg/dL ?? (LDL-C of <70 mg/dL) is considered a therapeutic ?? option. Triglycerides 166(H) <150 mg/dL [facility] 04/07/2021 9:05 AM EDT us Cristela Hill MD LAB BLOOD ORDERABLES Final Re sult [facility] [address] [place] [address], from Last 3 Months or Most Recently Relevant to Health Maintenance Insurance MEDICARE [facility] Care Teams Pattern Duplicator Relationship Specialty Start Date End Date Cristela Hill MD [address] [place] [address] PCP - General Family Medicine 06/12/18 [facility] 12/31/11
--- OUTSIDE RECORDS SUMMARY | 2024-08-09 14:16 | XMS_ITS | Encounter Summary ---
Author Organization [employer] Address [address] [place] [address] Care Team Providers Care Development Engineer Name Role Phone Cristela Hill MD Primary Care Provider [phone] Encounter Details Date Type Department Care Team (Late st Contact Info) Description 07/04/2022 Abstract [facility] [address] [place] [address] Cristela Hill MD [address] [place] [address] Social History Tobacco Use Types Packs/Day Years [...] AM EDT documented as of this encounter Plan of Treatment Not on file documented as of this encounter Visit Diagnoses Not on filedocumented in this encounter Additional Health Concerns Assessment Noted Time PHQ-9 Depression Total Score: 0 06/22/19 9:46 AM EST documented as of this encounter Care Teams Development Engineer Relationship Specialty Start Date End Date Cristela Hill MD [address] [place] [address] PCP - General Family Medicine 06/12/18 [facility] 12/31/11 documented as of this encounter
--- OUTSIDE RECORDS SUMMARY | 2024-08-09 14:16 | XMS_ITS | Encounter Summary ---
Author Organization [employer] Address [address] [facility] 7t [place] [address] Care Team Providers Care Machine Folder Name Role Phone Cristela Hill MD Primary Care Provider [phone] Reason for Visit * Reason Onset Date Comments Nurse Triage 06/22/2023 Encounter Details Date Type Department Care Team ([facility] st Contact Info) Description 06/22/2023 Telephone [facility] MEDICINE [address] [place] [address] Cristela Hill MD [address] [place] [address] Nurse Triage Social History Tobacco Use Types Packs/Day Years Used Date Smoking Tobacco: Never Passive Smoke Exposure: Never Smokeless Tobacco: Never Alcohol Use Standard Drinks/Week Comments Never 0 (1 standard drink = 0.6 oz pur e alcohol) Depression Answer Date Recorded Patient Health Questionnaire-9 Score 0 06/22/2022 Housing Stability Answer Date Recorded What is your housing situation today? I have jacquesnimisha bai 03/28/[address] you [...] t he electric, gas, oil or water [employer] threatened to shut off services in your [...] Miscellaneous Notes * Telephone Encounter - Morelia Wade RN - 06/22/2023 2:47 PM EST TC to pt residential, they state he is still at urgent care waiting to be seen. They are aware to call us once pt is back home. 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 Staff on phone with Mgr present. Patientcontinues with cough and congestion as reportedly worse not better following Prednisone, Zpack and mucinex. Advised to return for reevaluation. Housekeeping Staff seeking refill on Mucinex only. Updated no appts at [facility] as of time of call. Mgr resistant to bring patient to [facility] due to wait times and previous attempts to seek care there. Rationale reviewed that as patient is not better may need further care.Housekeeping Staff verbalized understanding and in agreement with plan. Disposition reviewed and no PCP or Team appts available at time of call. Patient advised of [facility] hours and availability for today and tomorrow at time of call. Triage nurse informed the patient may have a wait of 1-2 hours because [facility] may have delays from patient???s walking in with urgent medical needs. Insurance verifiedat time of call. Protocol Used: Cough (Adult) Protocol-Based Disposition: See in Office or Video Visit Today or Tomorrow Override (Final) Disposition: Go to Urgent Care Now Override Reason: Already seen and worse Override Notes: Patient treated with Zpack, prednisone, mucinex on 06/15 Video visit not offered Positive Triage Question: * Patient wants to be seen * All higher-acuity triage questions were negative Care Advice Discussed: * Reasons To Call Back - Difficulty breathing - Cough lasts more than 3 weeks - You become worse * Telephone Encounter - Connie Cartagena - 06/22/2023 11:58 AM EST Symptom: Chest Congestion Outcome: Schedule an appointment to be seen within 24 hours Reason: Caller denied all higher acuity questions The caller accepted this outcome 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 documented in this encounter Plan of Treatment Not on file documented as of this encounter Visit Diagnoses Not on filedocumented in this encounter Additional Health Concerns Assessment Noted Time PHQ-9 Depression Total Score: 0 06/22/19 23 9:46 AM EST documented as of this encounter Care Teams Machine Folder Relationship Specialty Start Date End Date Cristela Hill MD [address] [place] [id number] PCP - General Family Medicine 06/12/18 [facility] 12/31/11 documented as of this encounter
--- OUTSIDE RECORDS SUMMARY | 2024-08-09 14:16 | XMS_ITS | Encounter Summary ---
Author Organization [employer] Address [address] [facility] 7t [place] [address] Care Team Providers Care Solution Advisor Name Role Phone Cristela Hill MD Primary Care Provider [phone] Reason for Visit * Reason Comments Med Refill Encounter Details Date Type Department Care Team ([facility] Contact Info) Description 04/16/2024 Refill [facility] [address] [place] [address] Cristela Hill MD [address] [place] [address] Social History Tobacco Use Types Packs/Day Years [...] documented as of this encounter Care Teams Solution Advisor Relationship Specialty Start Date End Date Cristela Hill MD [address] [place] [address] PCP - General Family Medicine 06/12/18 [facility] 12/31/11 documented as of this encounter
--- OUTSIDE RECORDS SUMMARY | 2024-08-09 14:16 | XMS_ITS | Encounter Summary ---
Author Organization [employer] Address [address] [facility] 7t [place] [address] Care Team Providers Care Beam Dyer Recessed Vat Name Role Phone Cristela Hill MD Primary Care Provider [phone] Reason for Visit * Reason Onset Date Comments Med Refill 04/25/2024 Encounter Details Date Type Department Care Team ([facility] Contact Info) Description 04/25/2024 Telephone [facility] MEDICINE [address] [place] [address] Cristela Hill MD [address] [place] [address] Med Refill Social History Tobacco Use Types Packs/Day Years Used Date Smoking Tobacco: Never Passive Smoke Exposure: Never Smokeless Tobacco: Never Alcohol Use Standard Drinks/Week Comments Never 0 (1 standard drink = 0.6 oz pur e alcohol) Depression Answer Date Recorded Patient Health Questionnaire-9 Score 0 06/22/2022 Housing Stability Answer Date Recorded What is your housing situation today? I have jacques bhumika 01/09/[address] you li [...] encounter Miscellaneous Notes * Telephone Encounter - Karen Murillo LPN - 04/25/2024 3:51 PM EST Medication pended to provider for approval. * Telephone Encounter - Edmond Fay - 04/25/2024 3:40 PM EST TC from pt requesting medication refill. Medications needing refill : pregabalin (Lyrica) 100 MG capsule To be sent to: [facility] [address] [facility] documented in this encounter Plan of Treatment Not on file documented as of this encounter Visit Diagnoses Not on filedocumented in this encounter Additional Health Concerns Assessment Noted Time PHQ-9 Depression Total Score: 0 06/22/19 23 9:46 AM EST documented as of this encounter Care Teams Beam Dyer Recessed Vat Relationship Specialty Start Date End Date Cristela Hill MD [address] [place] [address] PCP - General Family Medicine 06/12/18 [facility] 12/31/11 documented as of this encounter
--- OUTSIDE RECORDS SUMMARY | 2024-08-09 14:16 | XMS_ITS | Encounter Summary ---
Author Organization [employer] Address [address] [place] [address] Care Team Providers Care Cargo Agent Name Role Phone Cristela Hill MD Primary Care Provider [phone] Encounter Details Date Type Department Care Team (Late st Contact Info) Description 07/31/2024 6:20 PM EST Ancillary Procedure [facility] Cardiology [facility] [address] [facility] [address] [place] [address] Social History Tobacco Use Types Packs/Day Years Used Date Smoking Tobacco: Never Smokeless Tobacco: Never Alcohol Use Standard Drinks/Week Comments No 0 (1 standard drink = 0.6 oz pur e alcohol) Sex and Gender Information Value Date Recorded Sex Assigned at Not on file Legal Sex Male 9:52 PM EST Gender Identity Not on file Sexual Orientation Not on file documented as of this encounter Plan of Treatment Upcoming Encounters Date Type Department Care Team (Late st Contact Info) Description 09/18/2024 11:20 AM EDT Office Visit [facility] [address] [facility] [address] [place] [address] Lashay Larry MD [address] [place] [address] 10/21/2024 9:45 AM EDT Office Visit [facility] [place] [address] [facility] [address] [place] [phone] Sarath Gentile, DPShagufta [address] [facility] [address] [place] [address] 04/23/2025 1:30 PM EST Ancillary Procedure [facility] Cardiology [facility] [address] [facility] 154 [place] [address] documented as of this encounter Procedures Procedure Name Priority Date/Time Associated Diagnosis Comments CARDIAC DEVICE CHECK- REMOTE- MURJ Routine 07/31/2024 6:18 PM EST documented in this encounter Results * Cardiac device check - Remote- MURJ (07/31/2024 6:18 PM EST) Date Time Interrogation Session [id number] CV DEVICE CHECK Type Interrogation Session Remote CV DEVICE CHECK Implantable Pulse Generator Dye Lab Technician MDT CV DEVICE CHECK Implantable Pulse Generator Type ICD CV DEVICE CHECK Implantable Pulse Generator Model Visia AF MRI VR [id number] CV DEVICE CHECK Implantable Pulse Generator Serial Number [id number] CV DEVICE CHECK Implantable Pulse Generator Implant Date 20220805 CV DEVICE CHECK Battery Remaining Longevity 124.0 CV DEVICE CHECK Battery Voltage 3.020 CV D EVICE CHECK Battery [employer] Trigger 2.727 CV DEVICE CHECK Battery Status Middle of Service CV DEVICE CHECK Capacitor Charge Time 3.733 CV DEVICE CHECK Monster Statistic RV Percent Paced 0.00 CV DEVICE CHECK Atrial Tachy Statistic AT/AF [place] Percent 0.00 CV DEVICE CHECK Lead Channel Sensing Intrinsic Amplitude 9.000 CV DEVICE CHECK Lead Channel Setting Sensing Sensitivity 0.30 CV DEVICE CHECK Lead Channel Impedance Value 380 CV DEVICE CHECK Lead Channel Pacing Threshold Amplitude 0.625 CV DEVICE CHECK Lead Channel Pacing Threshold Pulse Width 0.4 CV DEVICE CHECK Lead Channel RV Pacing Threshold Date 2024-07-21 CV DEVICE CHECK Lead Channel Setting Pacing Amplitude 2.000 CV DEVICE CHECK Lead Channel Setting Pacing Pulse Width 0.4 CV DEVICE CHECK Monster Setting Mode (NBG Code) VVI CV DEVICE CHECK Monster Setting Lower Rate Limit 40 CV DEVICE CHECK Therapy Statistic Recent Shocks Delivered 0 CV DEVICE CHECK Therapy Statistic Recent Shocks Aborted 0 CV DEVICE CHECK Therapy Statistic Recent ATP Delivered 0 CV DEVICE CHECK RV HV Impedance 71 CV D EVICE CHECK Zone Setting Type Category VF CV DEVICE CHECK Rate 200 CV DEVICE CHECK Therapies ATP During Charging, 35Jx6 CV DEVICE CHECK Zone Setting Status On CV DEVICE CHECK Zone ID 3 CV DEVICE CHECK Zone Setting Type Category VT CV DEVICE CHECK Zone Setting Status Off CV DEVICE CHECK Zone ID 4 CV DEVICE CHECK Zone Setting Type Category VT CV DEVICE CHECK Zone Setting Status Off CV DEVICE CHECK Zone ID 5 CV DEVICE CHECK Zone Setting Type Category VT CV DEVICE CHECK Rate 150 CV DEVICE CHECK Rate 167 CV DEVICE CHECK Zone Setting Status ENABLED CV DEVICE CHECK Zone ID 6 CV DEVICE CHECK Date of Service 2024-08-01 CV DEVICE CHECK Anatomical Region Laterality Modality Device Interroga tion 07/22/2024 12:1 7 AM EST Impressions 07/31/2024 1:44 PM EST Normal Remote: No Events * Normal Device Function * Alerts or events: None * Battery: OK, 10.33 yrs * Sensing, impedance and thresholds reviewed * Programmed parameters reviewed * Presenting rhythm reviewed * Heart Rate Histograms reviewed * No significant changes noted Heart Failure Diagnostic: Stable * Heart failure diagnostics assessed through the device * Status: Stable * No overt HF present Narrative Procedure Note Bobby Melendez MD - 07/31/2024 IMPRESSION: Normal Remote: No Events * Normal Device Function * Alerts or events: None * Battery: OK, 10.33 yrs * Sensing, impedance and thresholds reviewed * Programmed parameters reviewed * Presenting rhythm reviewed * Heart Rate Histograms reviewed * No significant changes noted Heart Failure Diagnostic: Stable * Heart failure diagnostics assessed through the device * Status: Stable * No overt HF present Bobby Melendez MD CV IMPLANTABLE CARDIAC DEVICE PROCEDURES Final Result documented in this encounter Visit Diagnoses Not on filedocumented in this encounter Care Teams Cargo Agent Relationship Specialty Start Date End Date Cristela Hill MD [address] [place] [address] PCP - General 03/01/23 documented as of this encounter
--- OUTSIDE RECORDS SUMMARY | 2024-08-09 14:16 | XMS_ITS | Encounter Summary ---
Author Organization [employer] Address [address] [facility] 7t [place] [address] Care Team Providers Care Part Time Flexible Clerk Name Role Phone Cristela Hill MD Primary Care Provider [phone] Reason for Visit * Reason Onset Date Comments medication 05/09/2023 Encounter Details Date Type Department Care Team ([facility] Contact Info) Description 05/09/2023 Telephone [facility] MEDICINE [address] [place] [address] Cristela Hill MD [address] [place] [address] medication Social History Tobacco Use Types Packs/Day Years [...] encounter Miscellaneous Notes * Telephone Encounter - Connie Cartagena - 05/09/2023 12:39 PM EST Tc from [facility] with [facility] requesting authorization from PCP to discontinue apixaban (Eliquis) 5 MG tablet medication due to ripening room hand request, please tori Morel [phone] documented in this encounter Plan of Treatment Not on file documented as of this encounter Visit Diagnoses Not on filedocumented in this encounter Additional Health Concerns Assessment Noted Time PHQ-9 Depression Total Score: 0 06/22/19 23 9:46 AM EST documented as of this encounter Care Teams Part Time Flexible Clerk Relationship Specialty Start Date End Date Cristela Hill MD [address] [place] [address] PCP - General Family Medicine 06/12/18 [facility] 12/31/11 documented as of this encounter
--- OUTSIDE RECORDS SUMMARY | 2024-08-09 14:16 | XMS_ITS | Encounter Summary ---
Author Organization [employer] Address [address] [facility] 7t [place] [address] Care Team Providers Care Raschel Knitting Machine Operator Name Role Phone Cristela Hill MD Primary Care Provider [phone] Reason for Visit * Reason Onset Date Comments FYI 01/16/2023 Encounter Details Date Type Department Care Team ([facility] st Contact Info) Description 01/16/2023 Telephone [facility] MED [facility] PEDS [address] [place] [address] Cristela Hill MD [address] [place] [address] Social History Tobacco Use Types Packs/Day Years [...] encounter Miscellaneous Notes * Telephone Encounter - Charis Stearns - 01/16/2023 9:07 AM EDT Tc from bud with [facility] care advising PCP pt had elevated blood sugar of 453 on Monday evening after going out with family to [facility]. After fasting, pt blood sugar as of this morning is now 106. Any questions, please contact bud at [phone] documented in this encounter Plan of Treatment Not on file documented as of this encounter Visit Diagnoses Not on filedocumented in this encounter Additional Health Concerns Assessment Noted Time PHQ-9 Depression Total Score: 0 06/22/19 23 9:46 AM EST documented as of this encounter Care Teams Raschel Knitting Machine Operator Relationship Specialty Start Date End Date Cristela Hill MD [address] [place] [address] PCP - General Family Medicine 06/12/18 [facility] 12/31/11 documented as of this encounter
--- OUTSIDE RECORDS SUMMARY | 2024-08-09 14:16 | XMS_ITS | Encounter Summary ---
Author Organization [employer] Address [address] [place] [address] 7 [place] [address] Care Team Providers Care Restaurant Shift Supervisor Name Role Phone Cristela Hill MD Primary Care Provider [phone] Reason for Visit * Reason Onset Date Comments FYI 08/30/2022 Encounter Details Date Type Department Care Team ([facility] st Contact Info) Description 08/30/2022 Telephone [facility] [address] [place] [address] Cristela Hill MD [address] [place] [address] Social History Tobacco Use Types Packs/Day Years [...] Telephone Encounter - Devin Stearns RN - 08/30/2022 1:57 PM EDT Please see message below left as FYI. Thank you. * Telephone Encounter - Joseph Kellogg - 08/30/2022 1:46 PM EDT Tc from Jie Visiting Nurse with [facility] letting PCP Know that facility is renewing Homecare visits, for twice a day to manage his medication on August. If any questions please contact Jie at [phone] documented in this encounter Plan of Treatment Not on file documented as of this encounter Visit Diagnoses Not on filedocumented in this encounter Additional Health Concerns Assessment Noted Time PHQ-9 Depression Total Score: 0 06/22/19 23 9:46 AM EST documented as of this encounter Care Teams Restaurant Shift Supervisor Relationship Specialty Start Date End Date Cristela Hill MD [address] [place] [id number] PCP - General Family Medicine 06/12/18 [facility] 12/31/11 documented as of this encounter
--- OUTSIDE RECORDS SUMMARY | 2024-08-09 14:16 | XMS_ITS | Encounter Summary ---
Author Organization [employer] Address [address] [place] [address] [address] [place] [address] Care Team Providers Care Upper Cutter Machine Name Role Phone Cristela Hill MD Primary Care Provider [phone] Encounter Details Date Type Department Care Team (Late st Contact Info) Description 01/09/2023 Abstract [employer] [address] [place] [address] Cristela Hill MD [address] [place], [place] [id number] Social History Tobacco Use Types Packs/Day Years [...] documented as of this encounter Care Teams Upper Cutter Machine Relationship Specialty Start Date End Date Cristela Hill MD [address] [place], [place] [phone] PCP - General Family Medicine 06/12/18 [facility] 12/31/11 documented as of this encounter
--- OUTSIDE RECORDS SUMMARY | 2024-08-09 14:16 | XMS_ITS | Clinical Summary ---
Author Organization [address] [place] [address] Address [address] [place] [address] Phone Care Team Providers Care Retail Store Manager Name Role Phone Cristela Hill MD Primary Care Provider [phone] Allergies Active Allergy Reactions Criticality Noted Date Comments Chicken Derived 03/07/2022 Other Reaction(s): Rash/Dermatitis Codeine Low 07/10/2020 Fish Derived 03/07/2022 Other Reaction(s): Rash/Dermatitis Oxycodone Low 03/18/2022 Oxycodone-Acetaminophen 07/10/2020 Shellfish Derived 03/08/2022 lobster Medications gabapentin (NEURONTIN) 300 mg capsule Take 1 capsule (300 mg total) by mouth at bedtime. Active aspirin 81 mg EC tablet Take 1 tablet (81 mg total) by mouth 1 (one) time each day. Active semaglutide (Ozempic) 1 mg/dose (4 mg/3 mL) injection pen Inject under the skin 1 (one) time per week. Active loperamide (IMODIUM) 2 mg capsule Take 1 capsule (2 mg total) by mouth 1 (one) time each day if needed. Active inhalational spacing device inhaler Spacer/Aero-H olding Chambers (BreatheRite Valved MDI Chamber) Device 1 Each by Does not apply route as needed for Other (to use with inhalers). 12/14/2022 Active pregabalin (LYRICA) 75 mg capsule Take 1 capsule (75 mg total) by mouth 2 (two) times a day. Max Daily Amount: 150 mg Active nateglinide (STARLIX) 60 mg tablet Take 1 tablet (60 mg total) by mouth 3 (three) times a day before meals. Active INSULIN ASPART U-100 SUBQ Insulin Aspart (NOVOLOG FLEXPEN SC) Inject into the skin. Active magnesium oxide (MAG-OX) 400 mg (241.3 elemental magnesium) tablet Take 1 tablet (400 mg total) by mouth 1 (one) time each day. 03/26/2022 Active finasteride (PROSCAR) 5 mg tablet Take 1 tablet (5 mg total) by mouth 1 (one) time each day. 03/26/2022 Active midodrine (PROAMATINE) 5 mg tablet Take 1 tablet (5 mg total) by mouth 3 (three) times a day. 03/26/2022 Active docusate sodium (COLACE) 100 mg capsule Take 1 capsule (100 mg total) by mouth 2 (two) times a day. Active atorvastatin (LIPITOR) 80 mg tablet Take 1 tablet (80 mg total) by mouth at bedtime. Active insulin detemir (LEVEMIR) 100 unit/mL injection 100 Units 1 (one) time each day. 06/29/2012 Active metFORMIN (GLUCOPHAGE) 500 mg tablet Take 2 tablets (1,000 mg total) by mouth 2 (two) times a day with meals. Active pantoprazole (PROTONIX) 40 mg EC tablet Take 1 tablet (40 mg total) by mouth 1 (one) time each day. Active nitroglycerin (NITROSTAT) 0.4 mg SL tablet Take 1 tablet (0.4 mg total) by mouth every 5 (five) minutes if needed for chest pain. 06/29/2012 Active sertraline (ZOLOFT) 50 mg tablet Take 2 tablets (100 mg total) by mouth 1 (one) time each day. Active Corlanor 5 mg tablet Take 0.5 tablets (2.5 mg total) by mouth 2 (two) times a day. 90 tablet 3 05/01/2024 Active Active Problems Problem Noted Date Diagnosed Date Chest pain 05/29/2023 Single subsegmental pulmonar y embolism without acute cor pulmonale 02/25/2023 Anxiety 2022 BPH (benign prostatic hyperplasia) 2022 Class 1 obesity 2022 COPD (chronic obstructive pu lmonary disease) with chronic bronchitis 2022 Depression 2022 Diabetes mellitus 2022 Diabetic neuropathy 2022 Gait instability 2022 GERD (gastroesophageal reflux disease) Hypomagnesemia 2022 Nocturnal hypoxia 2022 Overview (03/13/2024): 12/14/2022 MAGEN on RA for 4.30min showed: 1. Lowest SpO2 is 78% 2. Time spent <88% is 4min 3.No oxygen supplementation needed at this time. 4. There is multiple oxygen desat >88% which may indicated GARETT but patient has gait instability which may increase his fall risk. GARETT (obstructive sleep apnea) 2022 Vertigo 2022 Chronic systolic heart failure 03/18/2022 Overview (03/13/2024): Acute exacerbation Last Assessment & Plan: Today he appears to be euvolemic. I do not find any signs for heart failure. CHF (congestive heart failure) 03/07/2022 HFrEF (heart failure with reduced ejection fract ion) 03/07/2022 Hypertension 03/07/2022 Hypotension 03/07/2022 Overview (03/13/2024): Last Assessment & Plan: Does have a history of significant orthostatic hypotension. Today blood pressure is better than it has been. We will continue with the midodrine. Cardiomyopathy 07/10/2020 Overview (03/13/2024): Last Assessment & Plan: As I noted he does have a history of left ventricular dysfunction. Cardiac MRI in the past demonstrated his LVEF was 40%. Last echocardiogram was February 2022 at [facility] the left ventricle was dilated. Wall thickness was mildly increased. The LVEF at that time reported to be 30 to 35%. There is trace mitral regurgitation. Because of his blood pressure problems in the past was unable to tolerate a neuro humeral medications. At this time he is Corlanor. We will continue with this. Also today appears to be euvolemic I do not find any signs for heart failure today. Does have an ICD in place and has been no discharge. Coronary artery disease invo lving [place] coronary artery of [place] heart without angina pectoris 07/10/2020 Overview (03/13/2024): Last Assessment & Plan: Does have a known history of coronary artery disease as I have noted above. At this time he is having no chest pain. Continue with aspirin. Hyperlipidemia, mixed 07/10/2020 Overview (03/13/2024): Last Assessment & Plan: No recent lipid panel. Continue high intensity statin therapy. This should be repeated. Goal LDL less than 70 given coronary disease. Mild persistent asthma without complication 06/1996 Overview (03/13/2024): Patient states has for long time. Encounters Date Type Department Care Team Description 07/31/2024 6:20 PM EST Ancillary Procedure [facility] Cardiology [facility] [address] [place] [address] 07/03/[address] [facility] Cardiology [facility] [address] [place] [address] Hua Clinton [place] Other (Add RFV) (MHA form) from Last 3 Months Surgical History Surgery Date Site/Laterality Comments OTHER SURGICAL HISTORY PROCEDURE: SURGICAL STENT; COMMENT: multiple cardiac stents Medical History Medical History Date Comments Hypoxia DX:Hypoxia Type 2 diabetes mellitus ([facility]) DX:Type 2 diabetes mellitus ([facility]) BPH (benign prostatic hyperplasia) DX:BPH (benign prostatic hyperplasia) GERD (gastroesophageal reflux disease) DX:GERD (gastroesophageal reflux disease) Class 1 obesity DX:Class 1 obesi ty GARETT (obstructive sleep apnea) DX :GARETT (obstructive sleep apnea) Vertigo DX:Vertigo Anxiety DX:Anxiety Gait instability DX:Gait instabi lity DVT prophylaxis DX:DVT prophylax is Orthostatic hypotension DX:Ortho static hypotension Depression with anxiety DX:Depre ssion with anxiety Diabetic neuropathy ([facility]) DX :Diabetic neuropathy ([facility]) Acute urinary retention 08/17/2022 DX:Acute urinary retention Hypomagnesemia DX:Hypomagnesemi a Diabetes mellitus ([facility]) DX:D iabetes mellitus ([facility]) Depression DX:Depression Asthma in adult, mild persis tent, uncomplicated 1996 DX:Asthma in adult, mild persistent, uncomplicated; COMMENT: Patient states has for long time. COPD (chronic obstructive pu lmonary disease) with chronic bronchitis ([facility]) DX:COPD (chronic obstructive pulmonary disease) with chronic bronchitis ([facility]) Family History Medical History Relation Name Comments Heart attack Father Relation Name Status Comments Father Social History Tobacco Use Types Packs/Day Years Used Date Smoking Tobacco: Never Smokeless Tobacco: Never Alcohol Use Standard Drinks/Week Comments No 0 (1 standard drink = 0.6 oz pur e alcohol) Sex and Gender Information Value Date Recorded Sex Assigned at Not on file Legal Sex Male 9:52 PM EST Gender Identity Not on file Sexual Orientation Not on file Obstetrics History Last Filed Vital Signs Vital Sign Reading Time Taken Comments Blood Pressure 102/60 03/04/2024 7:49 AM EDT Sit ting R Arm Pulse 88 03/04/2024 7:49 AM EDT Temperature - - Respiratory Rate - - Oxygen Saturation - - Inhaled Oxygen Concentration - - Weight 98.4 kg (217 lb) 03/04/2024 7:49 AM EDT Height 170.2 cm (5' 7 ) 03/04/2024 7:49 AM EDT Body Mass Index 33.99 03/04/2024 7:49 AM EDT Plan of Treatment Upcoming Encounters Date Type Department Care Team (Late st Contact Info) Description 09/18/2024 11:20 AM EDT Office Visit [facility] [address] [facility] [address] [place] [phone] Lashay Larry MD [address] [place] [address] 10/21/2024 9:45 AM EDT Office Visit Orthopedic Surgery - [place] [address] [facility] 250 [place] [phone] Sarath Gentile DPM [address] [address] 04/23/2025 1:30 PM EST Ancillary Procedure [facility] Cardiology [facility] [address] [facility] [address] [place] [address] Health Maintenance Due Date Last Done Comments Diabetes: Annual GFR (Glomerular Filtration Rate) 1960 Diabetes: Annual Foot Exam 1970 Diabetes: Annual Retina Eye Exam 1970 Pneumococcal Vaccine: 50+ Years (3 of 3 - PCV20 or PCV21) 07/25/2019 07/25/2014, 08/28/2006 Pneumococcal Vaccine: Pediatrics (0 to 5 Years) and At-Risk Patients (6 to 64 Years) (3 of 3 - PCV20 or PCV21) 07/25/2019 07/25/2014, 08/28/2006 RSV Immunization Patients 60+ Years Old (1 - Risk 60-74 years 1-dose series) 2020 Colorectal Cancer Screening: Colonoscopy 05/14/2022 HIV Screening 05/14/2022 Hepatitis C Screening 05/14/2022 Medicare Annual Wellness Visit 05/14/2022 Social Influencers of Health Screening 05/14/2022 Hypertension/CHF/CAD Annual BMP Blood Test 05/22/2022 Depression Screening 06/22/2023 06/22/2022 Diabetes: Annual Urine Albumin-Creatinine Ratio (uACR) 07/28/2023 COVID-19 Vaccine ( season) 2024 06/30/2021, 08/26/2020, 07/29/2020 Influenza Vaccine (#1) 2024 , 04/01/2022, 03/18/2021, Additional history exists Diabetes: Blood Sugar Control Test (HGBA1C) 07/20/2024 01/18/2024 Cholesterol Screening (Lipid Panel) 04/07/2026 04/07/2021 DTaP,Tdap,and Td Vaccines (2 - Td or Tdap) 05/25/2026 05/25/2016 Zoster Vaccines Completed 04/30/2019, 02/28/2019 Hepatitis B Vaccines Completed 08/10/2023, 05/18/2023, 04/20/2023 HIB Vaccines Aged Out No longer eligi [...] on patient's age to complete this topic MMR Vaccines Aged Out No longer eligi ble based on patient's age to complete this topic Meningococcal ACWY Vaccine Aged Out N o longer eligible based on patient's age to complete this topic Meningococcal B Vacine Aged Out No lo nger eligible based on patient's age to complete this topic RSV Immunization Patients Under 20 months Aged Out No longer eligible based on patient's age to complete this topic Varicella Vaccines Aged Out No longer eligible based on patient's age to complete this topic Medical Devices Implanted Type Area Parts Clerk Device Identifier Shelf Expiration Date Model / Serial / Lot Cardiac Icd-08/05/2022 Implanted: by Bobby Melendez MD (Quantity not on file) Cardiac ICD Left: Chest [employer] - CARDIAC RHYTH-CRDM VISIA AF MRI VR [id number] / [id number] S / Procedures Procedure Name Priority Date/Time Associated Diagnosis Comments CARDIAC DEVICE CHECK- REMOTE- MURJ Routine 07/31/2024 6:18 PM EST from Last 3 Months Results * Cardiac device check - Remote- MURJ (07/31/2024 6:18 PM EST) Date Time Interrogation Session [id number] CV DEVICE CHECK Type Interrogation Session Remote CV DEVICE CHECK Implantable Pulse Generator Parts Clerk MDT CV DEVICE CHECK Implantable Pulse Generator Type ICD CV DEVICE CHECK Implantable Pulse Generator Model Visia AF MRI VR [id number] CV DEVICE CHECK Implantable Pulse Generator Serial Number [id number] CV DEVICE CHECK Implantable Pulse Generator Implant Date 20220805 CV DEVICE CHECK Battery Remaining Longevity 124.0 CV DEVICE CHECK Battery Voltage 3.020 CV D EVICE CHECK Battery WAFER MOUNTER Trigger 2.727 CV DEVICE CHECK Battery Status Middle of Service CV DEVICE CHECK Capacitor Charge Time 3.733 CV DEVICE CHECK Monster Statistic RV Percent Paced 0.00 CV DEVICE CHECK Atrial Tachy Statistic AT/AF [place] Percent 0.00 CV DEVICE CHECK Lead Channel [...] Status: Stable * No overt HF present us Bobby Melendez MD CV IMPLANTABLE CARDIAC DEVICE PROCEDURES Final Result from Last 3 Months Insurance MEDICARE MEDICAID - [place] Advance Directives Documents on File Type Date Recorded Patient Machinist Outside Expl anation Health Care Decision (hx) 03/07/2013 AD LÓPEZ DIRECTIVE Health Care Decision (hx) 03/07/2013 AD LÓPEZ DIRECTIVE Health Care Decision (hx) 03/07/2013 AD LÓPEZ DIRECTIVE Health Care Decision (hx) 03/07/2013 AD LÓPEZ DIRECTIVE Health Care Decision (hx) 03/07/2013 AD LÓPEZ DIRECTIVE Health Care Decision (hx) 03/07/2013 AD LÓPEZ DIRECTIVE Health Care Decision (hx) 03/07/2013 AD LÓPEZ DIRECTIVE Health Care Decision (hx) 03/07/2013 AD LÓPEZ DIRECTIVE Health Care Decision (hx) 03/07/2013 AD LÓPEZ DIRECTIVE Care Teams Retail Store Manager Relationship Specialty Start Date End Date Cristela Hill MD [address] [place] [phone] PCP - General 03/01/23
--- OUTSIDE RECORDS SUMMARY | 2024-08-09 14:16 | XMS_ITS | Encounter Summary ---
Author Organization [facility] Address [address] [place] [address] Care Team Providers Care Supervisor Baking Name Role Phone Cristela Hill MD Primary Care Provider Reason for Visit * Reason Onset Date Comments Other (Add RFV) 07/03/2024 MHA form Encounter Details Date Type Department Care Team (Late st Contact Info) Description 07/03/2024 Telephone [facility] [address] [facility] [address] [place] [address] Hua Clinton MA Other (Add RFV) (MHA form) Social History Tobacco Use Types Packs/Day Years [...] on file documented as of this encounter Progress Notes * Hua Clinton MA - 07/24/2024 8:36 AM EST Attempted to reach the long-term again and did not receive an answer. VM with no identifiers was reached. I will call back at another time. * Hua Clinton MA - 07/03/2024 3:59 PM EST Received a MHA form from pt's long-term asking if we they can hold the Corlanor 5 mg as it is notavailable at the pharmacy . I did leave a message with one of the staff members to have someone whois clinical to call back the office as she couldn't clarify. documented in this encounter Plan of Treatment Upcoming Encounters Date Type Department Care Team (Late st Contact Info) Description 09/18/2024 11:20 AM EDT Office Visit [facility] Cardiology [facility] 154 300 [facility] 154 [place] [address] Lashay Larry MD 300 [place] [address] 10/21/2024 9:45 AM EDT Office Visit Orthopedic Surgery [facility] [address] [phone] Sarath Gentile DPShagufta [address] [address] 04/23/2025 1:30 PM EST Ancillary Procedure [facility] - [facility] 154 300 [facility] 154 [place] [address] documented as of this encounter Visit Diagnoses Not on filedocumented in this encounter Care Teams Supervisor Baking Relationship Specialty Start Date End Date Cristela Hill MD [address] [place] [address] PCP - General 03/01/23 documented as of this encounter
--- OUTSIDE RECORDS SUMMARY | 2024-08-09 14:16 | XMS_ITS | Encounter Summary ---
Author Organization [employer] Address [address] [facility] 7t [place] [address] Care Team Providers Care Acoustic Engineer Name Role Phone Cristela Hill MD Primary Care Provider [phone] Encounter Details Date Type Department Care Team (Late st Contact Info) Description 08/30/2022 Abstract [facility] MEDICINE [address] [place] [address] Cristela Hill MD [address] [place], [place] [phone] Social History Tobacco Use Types Packs/Day Years [...] documented as of this encounter Care Teams Acoustic Engineer Relationship Specialty Start Date End Date Cristela Hill MD [address] [place] [address] PCP - General Family Medicine 06/12/18 [facility] 12/31/11 documented as of this encounter
--- OUTSIDE RECORDS SUMMARY | 2024-08-09 14:17 | XMS_ITS | Encounter Summary ---
Author Organization [employer] Address [address] [place] [address] 7t [place] [address] Care Team Providers Care Fleet Manager Name Role Phone Cristela Hill MD Primary Care Provider [phone] Encounter Details Date Type Department Care Team (Late st Contact Info) Description 02/21/2023 Orders Only [facility] MED & PEDS [address] [place], [place] [phone] Tiffany Howard MD [address] [place], [place] [phone] Other constipation (Primary Dx) Social History Tobacco Use Types Packs/Day Years [...] documented as of this encounter Visit Diagnoses Diagnosis Other constipation- Primary documented in this encounter Additional Health Concerns Assessment Noted Time PHQ-9 Depression Total Score: 0 06/22/19 23 9:46 AM EST documented as of this encounter Care Teams Fleet Manager Relationship Specialty Start Date End Date Cristela Hill MD [address] [place], [place] [phone] PCP - General Family Medicine 06/12/18 [facility] 12/31/11 documented as of this encounter
--- OUTSIDE RECORDS SUMMARY | 2024-08-09 14:17 | XMS_ITS | Encounter Summary ---
Author Organization [employer] Address [address] [facility] [address]t [place] [address] Care Team Providers Care Flame Gouger Name Role Phone Cristela Hill MD Primary Care Provider [phone] Reason for Visit * Reason Onset Date Comments Results 07/15/2024 If BG has been Encounter Details Date Type Department Care Team ([facility] st Contact Info) Description 07/15/2024 Telephone [facility] MEDICINE 230 [place] [address] Kareen Willett RN Results (If BG has been) Social History Tobacco Use Types Packs/Day Years Used Date Smoking Tobacco: Never Passive Smoke Exposure: Never Smokeless Tobacco: Never Alcohol Use Standard Drinks/Week Comments Never 0 (1 standard drink = 0.6 oz pur e alcohol) Depression Answer Date Recorded Patient Health Questionnaire-9 Score 0 06/22/2022 Housing Stability Answer Date Recorded What is your housing situation today? I have jacquesnimisha bai 01/09/[address] you [...] encounter Miscellaneous Notes * Telephone Encounter - Kareen Willett RN - 07/15/2024 9:40 AM EST Telephone call placed to patient in regards to message below. No answer, left voicemail. Patient tocall as needed. * Telephone Encounter - Kareen Willett RN - 07/15/2024 9:39 AM EST ----- Message from Jadon Manjarrez MD sent at 07/09/2024 2:13 PM EST ----- Please schedule a nurse call in 2 days for follow up glucose documented in this encounter Plan of Treatment Not on file documented as of this encounter Visit Diagnoses Not on filedocumented in this encounter Additional Health Concerns Assessment Noted Time PHQ-9 Depression Total Score: 0 06/22/19 23 9:46 AM EST documented as of this encounter Care Teams Flame Gouger Relationship Specialty Start Date End Date Cristela Hill MD [address] [place] [address] PCP - General Family Medicine 06/12/18 [facility] 12/31/11 documented as of this encounter
--- OUTSIDE RECORDS SUMMARY | 2024-08-09 14:17 | XMS_ITS | Encounter Summary ---
Author Organization [employer] Address [address] [place] [address] 7 [place] [address] Care Team Providers Care Field Appraiser Name Role Phone Cristela Hill MD Primary Care Provider [phone] Reason for Visit * Reason Onset Date Comments Other 01/30/2023 Encounter Details Date Type Department Care Team ([facility] Contact Info) Description 01/30/2023 Telephone [facility] CHC MED & PEDS 505 [place] [address] Cristela Hill MD [address] [place] [address] Other Social History Tobacco Use Types Packs/Day Years [...] encounter Miscellaneous Notes * Telephone Encounter - Kitty Nick RN - 02/06/2023 2:51 PM EDT T/C to Jeanna regarding below message regarding discontinued medication. Jeanna will fax form over for the discontinued medication order * Telephone Encounter - Larissa Armas - 01/30/2023 1:53 PM EDT Tc from [facility] requesting an order stating if medications are active,inactive or discontinued. Medications are ear drops (not on med list) and dycyclomine 20 mg. Please fax to [phone]. documented in this encounter Plan of Treatment Not on file documented as of this encounter Visit Diagnoses Not on filedocumented in this encounter Additional Health Concerns Assessment Noted Time PHQ-9 Depression Total Score: 0 06/22/19 23 9:46 AM EST documented as of this encounter Care Teams Field Appraiser Relationship Specialty Start Date End Date Cristela Hill MD [address] [place] [address] PCP - General Family Medicine 06/12/18 [facility] 12/31/11 documented as of this encounter
--- OUTSIDE RECORDS SUMMARY | 2024-08-09 14:17 | XMS_ITS | Encounter Summary ---
Author Organization [employer] Address [address] [facility] 7 [place] [address] Care Team Providers Care Director Employment Name Role Phone Cristela Hill MD Primary Care Provider [phone] Reason for Referral * Consultation (Routine) - Authorized Specialty Diagnoses / Procedures Referred By Miguel chavis Referred To Contact Podiatry Diagnoses Type 2 diabetes mellitus with diabetic autonomic neuropathy, with long-term current use of insulin (CMS/HCC) Tiffany Howard MD [address] [place] [address] Phone: tel: fax: Sarath Gentile DPM 175 [facility] [address] [place] [address] Phone: tel: fax: Referral ID Status Reason Start Date Expiration Date Visits Requested Visits Authorized [id number] Authorized Specialty Services Required 06/20/2024 06/20/2025 1 1 Encounter Details Date Type Department Care Team (Late st Contact Info) Description 06/20/2024 Orders Only [facility] CHC MED & PEDS 505 [place] [address] Tiffany Howard MD [address] [place] [address] Type 2 diabetes mellitus with diabetic autonomic neuropathy, with long-term current use of insulin (CMS/HCC) (Primary Dx) Social History Tobacco Use Types [...] as of this encounter Plan of Treatment Scheduled Referrals Name Type Priority Associated Diagnoses Orde r Schedule Referral to Podiatry Outpatient Referral Routine Type 2 diabetes mellitus with diabetic autonomic neuropathy, with long-term current use of insulin (CMS/HCC) Expected: 06/20/2024 (Approximate), Expires: 06/20/2025 documented as of this encounter Visit Diagnoses Diagnosis Type 2 diabetes mellitus with diabetic autonomic neuropathy, with long-term current use of insulin (CMS/HCC)- Primary documented in this encounter Additional Health Concerns Assessment Noted Time PHQ-9 Depression Total Score: 0 06/22/19 23 9:46 AM EST documented as of this encounter Care Teams Director Employment Relationship Specialty Start Date End Date Cristela Hill MD [address] [place] [address] PCP - General Family Medicine 06/12/18 [facility] 12/31/11 documented as of this encounter
--- OUTSIDE RECORDS SUMMARY | 2024-08-09 14:17 | XMS_ITS | Encounter Summary ---
Author Organization [employer] Address 75 [facility] 7t [place] [address] Care Team Providers Care Tax Evaluator Name Role Phone Cristela Hill MD Primary Care Provider [phone] Reason for Visit * Reason Onset Date Comments Med Refill 07/30/2024 Encounter Details Date Type Department Care Team ([facility] st Contact Info) Description 07/30/2024 Refill [facility] CHC MED & PEDS [address] [place] [address] Cristela Hill MD [address] [place] [address] Social History Tobacco Use Types Packs/Day Years [...] encounter Miscellaneous Notes * Telephone Encounter - Yasmeen Hernandez - 07/30/2024 10:03 AM EST TC from pt requesting medication refill. Medications needing refill : pregabalin (Lyrica) 100 MG capsule To be sent to: [facility] [address] Only have 3 days left documented in this encounter Plan of Treatment Not on file documented as of this encounter Visit Diagnoses Not on filedocumented in this encounter Additional Health Concerns Assessment Noted Time PHQ-9 Depression Total Score: 0 06/22/19 23 9:46 AM EST documented as of this encounter Care Teams Tax Evaluator Relationship Specialty Start Date End Date Cristela Hill MD [address] [place] [address] PCP - General Family Medicine 06/12/18 [facility] 12/31/11 documented as of this encounter
--- OUTSIDE RECORDS SUMMARY | 2024-08-09 14:17 | XMS_ITS | Encounter Summary ---
Author Organization [employer] Address 75 [facility] 7t [place] [address] Care Team Providers Care Chartered Financial Analyst Name Role Phone Cristela Hill MD Primary Care Provider [phone] Reason for Visit * Reason Comments Med Refill Encounter Details Date Type Department Care Team ([facility] Contact Info) Description 08/05/2024 Refill [facility] CHC MED & PEDS [address] [place] [address] Cristela Hill MD [address] [place] [address] Orthostatic hypotension; Chronic superficial gastritis without bleeding; Type 2 diabetes mellitus with diabetic autonomic neuropathy, with long-term current use of insulin ([facility]) Social History Tobacco Use Types Packs/Day Years [...] as of this encounter Visit Diagnoses Diagnosis Orthostatic hypotension Chronic superficial gastritis without bleeding Type 2 diabetes mellitus with diabetic autonomic neuropathy, with long-term current use of insulin ([facility]) documented in this encounter Additional Health Concerns Assessment Noted Time PHQ-9 Depression Total Score: 0 06/22/19 23 9:46 AM EST documented as of this encounter Care Teams Chartered Financial Analyst Relationship Specialty Start Date End Date Cristela Hill MD [address] [place] [id number] PCP - General Family Medicine 06/12/18 [facility] 12/31/11 documented as of this encounter
--- OUTSIDE RECORDS SUMMARY | 2024-08-09 14:17 | XMS_ITS | Encounter Summary ---
Author Organization [employer] Address [address] [place] [address] 7 [place] [address] Care Team Providers Care Trauma Program Manager Name Role Phone Cristela Hill MD Primary Care Provider [phone] Reason for Visit * Reason Onset Date Comments Medication Question 02/20/2023 Encounter Details Date Type Department Care Team ([facility] st Contact Info) Description 02/20/[address] [facility] CHC MED & PEDS [address] [place] [address] Cristela Hill MD [address] [place] [address] Medication Question Social History Tobacco Use Types [...] Telephone Encounter - Devin Stearns RN - 02/21/2023 11:53 AM EDT Call placed to pharmacy on file. RN informed last script on file for Colace 100mg BID on 01/2022. Rx was prescribed by Dr. Hill. PCP out. Will forward to covering provider to review below.Please advise. Thank you. 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 Please sent to [facility] - [place], [place] - [address] documented in this encounter Plan of Treatment Not on file documented as of this encounter Visit Diagnoses Not on filedocumented in this encounter Additional Health Concerns Assessment Noted Time PHQ-9 Depression Total Score: 0 06/22/19 23 9:46 AM EST documented as of this encounter Care Teams Trauma Program Manager Relationship Specialty Start Date End Date Cristela Hill MD [address] [place] [id number] PCP - General Family Medicine 06/12/18 [facility] 12/31/11 documented as of this encounter
--- OUTSIDE RECORDS SUMMARY | 2024-08-09 14:17 | XMS_ITS | Encounter Summary ---
Author Organization [employer] Address 75 [facility] 7t [place] [address] Care Team Providers Care Ladle Filler Name Role Phone Cristela Hill MD Primary Care Provider [phone] Reason for Visit * Reason Comments Pre-visit Planning Pre visit planning L VM Encounter Details Date Type Department Care Team ([facility] st Contact Info) Description 07/25/2024 Patient Outreach [facility] MED[facility]INE [address] [place] [address] Cristela Hill MD [address] [place] [address] Pre-visit Planning (Pre visit planning LVM ) Social History Tobacco Use Types Packs/Day Years [...] AM EDT documented as of this encounter Progress Notes * Arielle Chang - 07/25/2024 1:19 PM EST CC Arielle Eagle placed outbound call to patient to complete pre-visit planning. No answer at this time.Patient name and were not confirmed. CC left voicemail requesting return call. Direct contact information provided. documented in this encounter Plan of Treatment Not on file documented as of this encounter Visit Diagnoses Not on filedocumented in this encounter Additional Health Concerns Assessment Noted Time PHQ-9 Depression Total Score: 0 06/22/19 23 9:46 AM EST documented as of this encounter Care Teams Ladle Filler Relationship Specialty Start Date End Date Cristela Hill MD [address] [place] [address] PCP - General Family Medicine 06/12/18 [facility] 12/31/11 documented as of this encounter
--- OUTSIDE RECORDS SUMMARY | 2024-08-09 14:17 | XMS_ITS | Encounter Summary ---
Author Organization [employer] Address [address] [facility] [address] [place] [address] Care Team Providers Care Drying Machine Operator Name Role Phone Cristela Hill MD Primary Care Provider Reason for Referral * Consultation (Routine) - Authorized Specialty Diagnoses / Procedures Referred By Miguel chavis Referred To Contact Pharmacy Diagnoses Type 2 diabetes mellitus with diabetic autonomic neuropathy, with long-term current use of insulin (CMS/HCC) Cristela Hill MD [address] [place] [address] Phone: tel: fax: Referral ID Status Reason Start Date Expiration Date Visits Requested Visits Authorized [id number] Authorized Consult and Treat 08/09/2024 08/09/2025 6 6 * Consultation (Routine) - Authorized Specialty Diagnoses / Procedures Referred By Miguel chavis Referred To Contact Optometry Diagnoses Type 2 diabetes mellitus with diabetic autonomic neuropathy, with long-term current use of insulin (CMS/HCC) Cristela Hill MD [address] [place] [address] Phone: tel: fax: [facility] OPTOMETRY [address] [place] [address] Phone: tel: fax: Referral ID Status Reason Start Date Expiration Date Visits Requested Visits Authorized [id number] Authorized Consult and Treat 08/09/2024 08/09/2025 1 1 Encounter Details Date Type Department Care Team (Late st Contact Info) Description 08/09/2024 10:00 AM EST Office Visit [facility] CHC MED & PEDS [address] [place] [address] Cristela Hill MD [address] [place] [address] Encounter for immunization (Primary Dx); Type 2 diabetes mellitus with diabetic autonomic neuropathy, with long-term current use of insulin (CMS/HCC); Polyuria; Dietary counseling; Exercise counseling; Chronic combined systolic and diastolic heart failure (CMS/HCC); Chronic hypotension; Diastasis recti; Umbilical hernia without obstruction and without gangrene; History of implantable cardioverter-defibril lator (ICD) placement; Hyperlipidemia, mixed Social History Tobacco Use Types Packs/Day Years [...] AM EDT documented as of this encounter Last Filed Vital Signs Vital Sign Reading [...] Mass Index 34.04 08/09/2024 10:17 AM EST documented in this encounter Progress Notes * Cristela Hill MD - 08/09/2024 10:00 AM EST Subjective Patient ID: Sherif Ortega is a 63 y.o. male who presents for follow up. Sherif is a 63-year-old gentleman known to me here for follow-up of medical problems. He lives in a special housing where he gets twice daily nursing visits for insulin injections and medication administration. His a few months ago. He needs some medications adjusted as is insuranceis not covering his Lantus insulin anymore and he does not have enough money to pay for his lancetsor glucose strips. His weight and blood pressure are stable. He is not injecting his Trulicity since the month of April per patient as he states the injection hurts too much. He is only compliant with his insulin and oral medications. He has cardiology follow-up in September and he has a podiatry milvia ointment in early October with Dr. Arredondo. He needs a new ophthalmology referral as [facility] does not accept his insurance anymore either. He still sees his psychiatrist and is on the same medications. Review of Systems Constitutional: Negative for activity change, chills, fever and unexpected weight change. Respiratory: Negative for cough, shortness of breath and wheezing. Cardiovascular: Negative for chest pain, palpitations and leg swelling. Gastrointestinal: Negative for abdominal pain and blood in stool. Endocrine: Negative for polydipsia and polyuria. Genitourinary: Negative for decreased urine volume, difficulty urinating, dysuria and hematuria. Musculoskeletal: Negative for arthralgias and gait problem. Skin: Negative for color change and rash. Neurological: Negative for dizziness and headaches. Hematological: Negative for adenopathy. Psychiatric/Behavioral: Negative for dysphoric mood, hallucinations, sleep disturbance and suicidalideas. The patient is not nervous/anxious. Objective BP 100/68 (BP Location: Left arm, Patient Position: Sitting, BP Cuff Size: Adult) [id number] Temp 96.7 ??F (35.9 ??C) (Oral) Resp 20 Ht 5' 7 (1.702 m) Wt 217 lb 5 oz (98.6 kg) SpO2 97% BMI 34.04 kg/m?? Physical Exam Vitals reviewed. Constitutional: General: He is not in acute distress. Appearance: He is normal weight. HENT: Head: Normocephalic. Nose: Nose normal. Mouth/Throat: Mouth: Mucous membranes are moist. Comments: Has braces Eyes: Extraocular Movements: Extraocular movements intact. Pupils: Pupils are equal, round, and reactive to light. Cardiovascular: Rate and Rhythm: Normal rate and regular rhythm. Pulses: Dorsalis pedis pulses are 2+ on the right side and 2+ on the left side. Posterior tibial pulses are 2+ on the right side and 2+ on the left side. Heart sounds: Normal heart sounds. No murmur heard. Pulmonary: Effort: Pulmonary effort is normal. Breath sounds: Normal breath sounds. Abdominal: General: Bowel sounds are normal. There is no distension. Palpations: Abdomen is soft. There is no mass. Tenderness: There is no abdominal tenderness. There is no guarding. Musculoskeletal: General: Normal range of motion. Right lower leg: No edema. Left lower leg: No edema. Right foot: Normal range of motion. No deformity, bunion, Charcot foot or prominent metatarsal heads. Left foot: Normal range of motion. No deformity, bunion, Charcot foot or prominent metatarsal heads. Feet: Right foot: Protective Sensation: 7 sites tested. 7 sites sensed. Skin integrity: Skin integrity normal. No ulcer, blister, skin breakdown, erythema, warmth, callus or dry skin. Toenail Condition: Right toenails are normal. Left foot: Protective Sensation: 7 sites tested. 7 sites sensed. Skin integrity: Skin integrity normal. No ulcer, blister, skin breakdown, erythema, warmth, callus or dry skin. Toenail Condition: Left toenails are normal. Skin: Capillary Refill: Capillary refill takes less than 2 seconds. Findings: No rash. Neurological: Mental Status: He is oriented to person, place, and time. Mental status is at baseline. Psychiatric: Mood and Affect: Mood normal. Behavior: Behavior normal. Assessment/Plan Diagnoses and all orders for this visit: Encounter for immunization Comments: Sherif received his flu vaccine today without complications. Orders: - Albumin, Random Urine W/Creatinine; Future - Basic Metabolic Panel, Fasting; Future - CBC auto differential; Future - Hepatic Function Panel; Future - Vitamin B12/Folate, Serum Panel; Future - TSH W/Reflex to FT4; Future - PSA, Screen; Future - Lipid Panel, Standard; Future - Creatine Kinase, Total; Future - FLU VACCINE TRIVALENT (Fluarix) 6 mo + Type 2 diabetes mellitus with diabetic autonomic neuropathy, with long-term current use of insulin ([facility]) Comments: Uncontrolled with A1c of 10.0 today. Declines resuming GLP-1. Spoke with his [facility] as well as [facility] pharmacy today and switch his Lantus to Basaglar since his insurance will cover it. Also had to switch his Humalog to NovoLog for same reason. Sent prescription for strips and lancets toour [facility] pharmacy as it is [facility] does not accept Medicare part B. Patient aware. CDTMreferral also made today. Patient needs a new pair of diabetic shoes and a prescription for DME will be done. Advised to not miss his podiatry appointment in October.. Orders: - POCT Glucose - POCT HGB A1C - Albumin, Random Urine W/Creatinine; Future - Basic Metabolic Panel, Fasting; Future - CBC auto differential; Future - Hepatic Function Panel; Future - Vitamin B12/Folate, Serum Panel; Future - TSH W/Reflex to FT4; Future - PSA, Screen; Future - Lipid Panel, Standard; Future - Creatine Kinase, Total; Future - Referral to [facility]; Future - insulin pen needle 31G X 8 mm misc; Use as instructed - Lancets misc; Use 1 lancet tid to check blood sugar - glucose blood test strip; Check blood sugars tid - Referral to Pharmacy CDTM Polyuria Comments: Probably from uncontrolled DM but will check his PSA as well as other labs today. Call with resultsif abnormal. Orders: - PSA, Screen; Future Dietary counseling Exercise counseling Chronic combined systolic and diastolic heart failure ([facility]/HCC) Comments: BP stable. Continue meds as per cardiology. Do not miss follow-up in September as planned. Chronic hypotension Diastasis recti Comments: Patient states never received his abdominal brace prescribed last year. A new prescription will be ordered for DME Umbilical hernia without obstruction and without gangrene History of implantable cardioverter-defibrillator (ICD) placement Comments: Has appointment for ICD checkup. Advised not to miss. Hyperlipidemia, mixed Comments: On statin therapy daily. Will check LFTs, lipids and CPK due to complaining of muscle cramps. Other orders - insulin glargine (Basaglar KwikPen) 100 UNIT/ML pen; Inject 100 units in AM subcutaneous and 20 units in PM documented in this encounter Plan of Treatment Scheduled Orders Name Type Priority Associated Diagnoses Orde r Schedule Albumin, Random Urine W/Creatinine Lab Routine Encounter for immunization Type 2 diabetes mellitus with diabetic autonomic neuropathy, with long-term current use of insulin ([facility]) Expected: 08/09/2024 (Approximate), Expires: 08/09/2025 Basic Metabolic Panel, Fasting Lab Routine Encounter for immunization Type 2 diabetes mellitus with diabetic autonomic neuropathy, with long-term current use of insulin (CMS/[facility]) Expected: 08/09/2024 (Approximate), Expires: 08/09/2025 CBC auto differential Lab Routine Encounter for immunization Type 2 diabetes mellitus with diabetic autonomic neuropathy, with long-term current use of insulin (CMS/[facility]) Expected: 08/09/2024 (Approximate), Expires: 08/09/2025 Hepatic Function Panel Lab Routine Encounter for immunization Type 2 diabetes mellitus with diabetic autonomic neuropathy, with long-term current use of insulin ([facility]) Expected: 08/09/2024 (Approximate), Expires: 08/09/2025 Vitamin B12/Folate, Serum Panel Lab Routine Encounter for immunization Type 2 diabetes mellitus with diabetic autonomic neuropathy, with long-term current use of insulin ([facility]CC) Expected: 08/09/2024, Expires: 08/09/2025 TSH W/Reflex to FT4 Lab Routine Encounter for immunization Type 2 diabetes mellitus with diabetic autonomic neuropathy, with long-term current use of insulin (CMS/HCC) Expected: 08/09/2024 (Approximate), Expires: 08/09/2025 PSA, Screen Lab Routine Encounter for immunization Type 2 diabetes mellitus with diabetic autonomic neuropathy, with long-term current use of insulin (CMS/[facility]) Polyuria Expected: 08/09/2024 (Approximate), Expires: 08/09/2025 Lipid Panel, Standard Lab Routine Encounter for immunization Type 2 diabetes mellitus with diabetic autonomic neuropathy, with long-term current use of insulin (CMS/HCC) Expected: 08/09/2024 (Approximate), Expires: 08/09/2025 Creatine Kinase, Total Lab Routine Encounter for immunization Type 2 diabetes mellitus with diabetic autonomic neuropathy, with long-term current use of insulin (CMS/HCC) Expected: 08/09/2024, Expires: 08/09/2025 Scheduled Referrals Name Type Priority Associated Diagnoses Orde r Schedule Referral to [facility] Outpatient Referral Routine Type 2 diabetes mellitus with diabetic autonomic neuropathy, with long-term current use of insulin (CMS/HCC) Expected: 08/09/2024 (Approximate), Expires: 08/09/2025 Referral to Pharmacy CD Outpatient Referral Routine Type 2 diabetes mellitus with diabetic autonomic neuropathy, with long-term current use of insulin (CMS/[facility]) Ordered: 08/09/2024 documented as of this encounter Procedures Procedure Name Priority Date/Time Associated Diagnosis Comments POCT GLYCATED HEMOGLOBIN, TOTAL Routine 08/09/2024 10:36 AM EST Type 2 diabetes mellitus with diabetic autonomic neuropathy, with long-term current use of insulin (CMS/[facility]) POCT GLUCOSE Routine 08/09/2024 10:36 AM EST Type 2 diabetes mellitus with diabetic autonomic neuropathy, with long-term current use of insulin (CMS/[facility]) documented in this encounter Results * (ABNORMAL) POCT HGB A1C (08/09/2024 10:36 AM EST) Hemoglobin A1C 10.0(A) 4.0 - 6.0 % QC Media Lot # [id number] Lot# Expiration Date 426 Blood 08/09/2024 10:3 6 AM EST Cristela Hill MD POINT OF CARE TEST ENTER/EDIT ORDERABLES Final Result * (ABNORMAL) POCT Glucose (08/09/2024 10:36 AM EST) Glucose Blood, POC 369(A) 60 - 200 mg/dL QC Media Lot # [id number] Lot# Expiration Date 325 Blood Capillary blood specimen / Unknown 08/09/2024 10:36 AM EST Cristela Hill MD POINT OF CARE TEST ENTER/EDIT ORDERABLES Final Result documented in this encounter Visit Diagnoses Diagnosis Encounter for immunization- Primary Type 2 diabetes mellitus with diabetic autonomic neuropathy, with long-term current use of insulin (CMS/[facility]) Polyuria Dietary counseling Dietary surveillance and counseling Exercise counseling Chronic combined systolic and diastolic heart failure (CMS/HCC) Chronic combined systolic and diastolic heart failure Chronic hypotension Diastasis recti Diastasis of muscle Umbilical hernia without obstruction and without gangrene History of implantable cardioverter-defibrillator (ICD) placement Hyperlipidemia, mixed Mixed hyperlipidemia documented in this encounter Additional Health Concerns Assessment Noted Time PHQ-9 Depression Total Score: 0 06/22/19 23 9:46 AM EST documented as of this encounter Care Teams Drying Machine Operator Relationship Specialty Start Date End Date Cristela Hill MD [address] [place] [id number] PCP - General Family Medicine 06/12/18 [facility] 12/31/11 documented as of this encounter
--- OUTSIDE RECORDS SUMMARY | 2024-08-09 14:17 | XMS_ITS | Encounter Summary ---
Author Organization [employer] Address 75 [facility] 7t [place] [address] Care Team Providers Care Advice Nurse Name Role Phone Cristela Hill MD Primary Care Provider [phone] Reason for Visit * Reason Comments Med Refill Encounter Details Date Type Department Care Team ([facility] Contact Info) Description 07/30/2024 Refill [facility] MED[facility]INE [address] [place] [address] Cristela Hill MD [address] [place], [place] [id number] Social History Tobacco Use Types Packs/Day Years [...] the past 12 months, has t he [employer], gas, oil or water company threatened to [...] documented as of this encounter Care Teams Advice Nurse Relationship Specialty Start Date End Date Cristela Hill MD [address] [place] [address] PCP - General Family Medicine 06/12/18 [facility] 12/31/11 documented as of this encounter
--- OUTSIDE RECORDS SUMMARY | 2024-08-09 14:17 | XMS_ITS | Clinical Summary ---
Author Organization [facility] Address [address] [place] [address] Care Team Providers Care Marine Equipment Test Engineer Name Role Phone Cristela Hill MD Primary Care Provider [phone] Allergies Active Allergy Reactions Criticality Noted Date Comments Chicken Allergy Other (See Comments) 03/07/2022 Codeine Rash,Other (See Comments) Low 06/08/2010 Fish Allergy Other (See Comments) 03/07/2022 Oxycodone Low 03/18/2022 Oxycodone-Acetaminophen Rash Low 07/10/2020 Shellfish Allergy 03/08/2022 lobster Medications Medication Sig Dispensed Refills Start Date End Date Status aspirin EC 81 MG tablet Take 1 tablet (81 mg total) by mouth daily. 0 Active atorvastatin (LIPITOR) tablet 80 mg Take 1 tablet (80 mg total) by mouth daily. 0 Active finasteride (PROSCAR) 5 MG tablet Take 1 tablet (5 mg total) by mouth daily. 0 Active magnesium oxide 400 (240 Mg) MG TABS tablet Take 1 tablet (400 mg total) by mouth 2 (two) times a day. 0 Active pantoprazole (PROTONIX) 40 MG tablet Take 1 tablet (40 mg total) by mouth every morning on an empty stomach. 0 Active metFORMIN (FORTAMET) ER 24 hr tablet 1000 mg Take 1 tablet (1,000 mg total) by mouth every morning with breakfast. 0 Active nateglinide (STARLIX) tablet 60 mg Take 1 tablet (60 mg total) by mouth 3 (three) times a day before meals. 0 Active pregabalin (LYRICA) capsule 100 mg Take 1 capsule (100 mg total) by mouth 2 (two) times a day. 0 Active midodrine (PROAMATINE) 5 MG tablet Take 1 tablet (5 mg total) by mouth 3 (three) times a day before meals. 0 Active apixaban (ELIQUIS) 5 MG TABS tablet Take 1 tablet (5 mg total) by mouth every 12 (twelve) hours. 0 Active Semaglutide, 1 MG/DOSE, (Ozempic, 1 MG/DOSE,) 4 MG/3ML SOPN Inject under the skin. 0 Active insulin NPH (HumuLIN N,NovoLIN N) injection 100 units/mL Inject under the skin 2 (two) times a day before breakfast and dinner. 0 Active ammonium lactate (LAC-HYDRIN) 12 % lotion Apply topically as needed for dry skin. 0 Active bacitracin 500 UNIT/GM ointment Apply topically 2 (two) times a day. 0 Active docusate sodium (COLACE) 100 MG capsule Take 1 capsule (100 mg total) by mouth 2 (two) times a day. 0 Active loperamide (IMODIUM) 2 MG capsule Take 1 capsule (2 mg total) by mouth 4 (four) times a day as needed for diarrhea. 0 Active nystatin (MYCOSTATIN) powder Apply topically 4 (four) times a day. 0 Active Acetaminophen 500 MG coapsule Take by mouth. 0 Active sertraline (ZOLOFT) 100 MG tablet Take 1 tablet (100 mg total) by mouth daily. 0 Active nitroglycerin (NITROSTAT) 0.[address] 1 tablet (0.4 mg total) under the tongue as needed for chest pain. 0 Active albuterol 108 (90 Base) MCG/ACT inhaler Inhale 2 puffs into the lungs as needed for wheezing. 0 Active Active Problems Problem Noted Date Diagnosed Date BPH (benign prostatic hyperplasia) 2022 05/04/2023 Class 1 obesity 2022 05/04/2023 COPD (chronic obstructive pu lmonary disease) with chronic bronchitis 2022 05/04/2023 Depression 2022 05/04/2023 Diabetes mellitus 2022 05/04/2023 Gait instability 2022 05/04/2023 Diabetic neuropathy 2022 05/04/2023 GERD (gastroesophageal reflux disease) 05/04/2023 History of implantable cardi overter-defibrillator (ICD) placement 09/02/2022 05/04/2023 History of orthostatic hypotension 08/17/2022 05/04/2023 HFrEF (heart failure with reduced ejection fract ion) 03/07/2022 05/04/2023 Hyperlipidemia, mixed 07/10/2020 05/04/2023 Overview: Last Assessment & Plan: No recent lipid panel. Continue high intensity statin therapy. This should be repeated. Goal LDL less than 70 given coronary disease. Obstructive sleep apnea syndrome 07/07/2017 05/04/2023 Atherosclerosis of coronary artery 01/03/2014 05/04/2023 Overview: Last Assessment & Plan: Does have a known history of coronary artery disease as I have noted above. At this time he is having no chest pain. Continue with aspirin. Social History Tobacco Use Types Packs/Day Years Used Date Smoking Tobacco: Never Assessed Sex and Gender Information Value Date Recorded Sex Assigned at Not on file Gender Identity Not on file Sexual Orientation Not on file Job Start Date Occupation Industry Not on file Not on file Not on file Last Filed Vital Signs Vital Sign Reading Time Taken Comments Blood Pressure 79/58 05/02/2023 12:59 PM EST Pulse 102 05/02/2023 12:59 PM EST Temperature 36.7 ??C (98 ??F) 05/02/2023 12:59 PM EST Respiratory Rate - - Oxygen Saturation 100% 05/02/2023 12:59 PM EST Inhaled Oxygen Concentration - - Weight 92.5 kg (204 lb) 05/02/2023 12:59 PM EST per patient Height - - Body Mass Index - - Plan of Treatment Health Maintenance Due Date Last Done Comments Hepatitis C Screening 1960 COVID-19 Vaccine (#1) 06/19/1961 Pneumococcal Vaccine (1 of 2 - PCV) 1966 Depression Screening 1972 Preventative Health Evaluation 1978 DTap / Tdap / Td (1 - Tdap) 12/18/1979 Colon Cancer Screening (Colonoscopy) 2005 Shingrix-Zoster Vaccine (1 of 2) 2010 RSV Adult > 60+ Yrs or Pregn ant (1 - Risk 60-74 years 1-dose series) 2020 Hepatitis B Vaccines (2 of 3 - 19+ 3-dose series) 05/18/2023 04/20/2023 Influenza Vaccine (#1) 2024 04/11/2023 RSV Ped < 20 months Aged Out No longe r eligible based on patient's age to complete this topic Care Teams Marine Equipment Test Engineer Relationship Specialty Start Date End Date Cristela Hill MD [address] [place] [address] PCP - General Pediatrics 03/01/23
--- OUTSIDE RECORDS SUMMARY | 2024-08-09 14:17 | XMS_ITS | Encounter Summary ---
Author Organization [employer] Address [address] [place] [address] Care Team Providers Care Phone Screener Name Role Phone Cristela Hill MD Primary Care Provider [phone] Encounter Details Date Type Department Care Team (Latest Contact Info) Description 08/09/2024 Travel Social History Tobacco Use Types Packs/Day Years [...] documented as of this encounter Care Teams Phone Screener Relationship Specialty Start Date End Date Cristela Hill MD [address] [place] [address] PCP - General Family Medicine 06/12/18 [facility] 12/31/11 documented as of this encounter
--- OUTSIDE RECORDS SUMMARY | 2024-08-09 14:17 | XMS_ITS | Encounter Summary ---
Author Organization [employer] Address [address] [place] [address] Care Team Providers Care Receiving Specialist Name Role Phone Cristela Hill MD Primary Care Provider [phone] Reason for Visit * Reason Comments Med Refill Encounter Details Date Type Department Care Team ([facility] Contact Info) Description 07/29/2024 Refill [facility] MEDICINE [address] [place] [address] Zoe Singh FNP [address] [place] [address] Social History Tobacco Use Types Packs/Day Years [...] the past 12 months, has t he [employer], oil or water company threatened to shut [...] documented as of this encounter Care Teams Receiving Specialist Relationship Specialty Start Date End Date Cristela Hill MD [address] [place] [address] PCP - General Family Medicine 06/12/18 [facility] 12/31/11 documented as of this encounter
--- OUTSIDE RECORDS SUMMARY | 2024-08-09 14:17 | XMS_ITS | Encounter Summary ---
Author Organization [employer] Address [address] [facility] [place] [address] Care Team Providers Care Ferry Terminal Supervisor Name Role Phone Cristela Hill MD Primary Care Provider [phone] Reason for Visit * Reason Comments Med Refill Encounter Details Date Type Department Care Team ([facility] Contact Info) Description 07/16/2024 Refill [facility] MED & PEDS [address] [place] [address] Cristela Hill MD [address] [place] [address] Type 2 diabetes mellitus with diabetic autonomic neuropathy, with long-term current use of insulin ([facility]) Social History Tobacco Use Types Packs/Day Years [...] neuropathy, with long-term current use of insulin ([facility]) documented in this encounter Additional Health Concerns Assessment Noted Time PHQ-9 Depression Total Score: 0 06/22/19 23 9:46 AM EST documented as of this encounter Care Teams Ferry Terminal Supervisor Relationship Specialty Start Date End Date Cristela Hill MD [address] [place] [id number] PCP - General Family Medicine 06/12/18 [facility] 12/31/11 documented as of this encounter
--- OUTSIDE RECORDS SUMMARY | 2024-08-09 14:17 | XMS_ITS | Encounter Summary ---
Author Organization [employer] Address [address] [facility] [address] [place] [address] Care Team Providers Care Precision Millwright Name Role Phone Cristela Hill MD Primary Care Provider [phone] Reason for Visit * Reason Comments Med Refill Encounter Details Date Type Department Care Team ([facility] Contact Info) Description 07/27/2024 Refill [facility] MEDICINE [address] [place] [address] Cristela Hill MD [address] [place], [place] [id number] Social History Tobacco Use Types Packs/Day Years [...] the past 12 months, has t he [employer], gas, oil or water company threatened to [...] documented as of this encounter Care Teams Precision Millwright Relationship Specialty Start Date End Date Cristela Hill MD [address] [place] [address] PCP - General Family Medicine 06/12/18 [facility] 12/31/11 documented as of this encounter
--- OUTSIDE RECORDS SUMMARY | 2024-08-09 14:17 | XMS_ITS | Encounter Summary ---
Author Organization [employer] Address [address] [place] [address] [address] [place] [address] Care Team Providers Care Dining Service Supervisor Name Role Phone Cristela Hill MD Primary Care Provider [phone] Reason for Visit * Reason Onset Date Comments Med Refill 02/09/2023 Encounter Details Date Type Department Care Team ([facility] st Contact Info) Description 02/09/2023 Telephone [facility] CH[facility] MED & PEDS [address] [place] [address] Cristela Hill MD [address] [place] [address] Med Refill Social History Tobacco Use Types [...] * Telephone Encounter - Charis Stearns - 02/09/2023 10:40 AM EDT Tc from [facility] requesting medication refill on magnesium oxide (Mag-Ox) 400 (240 Mg) MG tablet documented in this encounter Plan of Treatment Not on file documented as of this encounter Visit Diagnoses Not on filedocumented in this encounter Additional Health Concerns Assessment Noted Time PHQ-9 Depression Total Score: 0 06/22/19 23 9:46 AM EST documented as of this encounter Care Teams Dining Service Supervisor Relationship Specialty Start Date End Date Cristela Hill MD [address] [place] [address] PCP - General Family Medicine 06/12/18 [facility] 12/31/11 documented as of this encounter
[2024-08-09 14:42] LABS: MANUAL DIFF FLAG NO
[2024-08-09 14:49] LABS: Basophils Absolute Auto 0.1 X10*3/uL (0.0-0.2); Basophils Percent Auto 1.1 % (0-2); Eosinophils Absolute Auto 0.1 X10*3/uL (0.0-0.4); Hematocrit 41.9 % (42.0-52.0); Hemoglobin 12.4 g/dl (14.0-18.0); Imm Gran Abs Auto 0.03 X10*3/uL (0.00-0.03); Imm Gran Pct Auto 0.3 % (0.0-0.4); Lymphocytes Absolute Auto 2.5 X10*3/uL (1.2-4.9); Lymphocytes Percent Auto 27.5 % (20-40); Mean Corpuscular HGB Conc 29.6 g/dl (31.0-36.0); Mean Corpuscular Hemoglobin 22.1 pg (27.0-33.0); Mean Corpuscular Volume 74.6 fL (80.0-98.0); Mean Platelet Volume 11.7 fL (9.4-12.4); Monocytes Absolute Auto 0.5 X10*3/uL (0.1-1.2); Monocytes Percent Auto 5.7 % (2-11); Neutrophils Absolute Auto 5.8 x10*3/uL (2.0-8.3); Neutrophils Percent Auto 64.4 % (45-73); Platelet Count 334 X10*3/uL (160-400); Red Blood Count 5.62 X10*6/uL (4.60-5.80); Red Cell Distribution Width 16.3 % (11.0-16.0); White Blood Count 8.9 X10*3/uL (4.8-10.8)
[2024-08-09 15:56] LABS: Folate 10.7 ng/mL (> or = 4.0); Prostate Specific Antigen Scr 0.67 ng/mL (<0.05-4.0); Vitamin B12 461 pg/mL (200-900)
[2024-08-09 16:32] LABS: Alanine Aminotransferase 46 U/L (0-40); Albumin Level 4.2 g/dL (3.5-5.0); Anion Gap 14 (12-20); Aspartate Amino Transferase 58 U/L (5-37); Bilirubin Direct 0.2 mg/dL (0.0-0.5); Bilirubin Total 0.6 mg/dL (0.0-1.0); Blood Urea Nitrogen 12 mg/dL (9-16); Calcium 9.9 mg/dL (8.4-10.2); Carbon Dioxide 26 mmol/L (22-29); Chloride 101 mmol/L (96-108); Cholesterol 135 mg/dL (<200); Estimated Glomerular Filt Rate > 60; Glucose Fasting 347 mg/dL (60-99); HDL Cholesterol 42 mg/dL (>40); LDL Cholesterol Calculated 57 mg/dL (<100); Potassium 4.3 mmol/L (3.3-5.1); Sodium 137 mmol/L (135-145); Total Protein 8.1 g/dL (6.5-8.0); Triglycerides 183 mg/dL (<150)
[2024-08-09 16:48] LABS: TSH reflex Free T4 1.94 uIU/mL (0.32-4.0)
[2024-08-09 17:54] LABS: Alkaline Phosphatase 148 U/L (39-117)
== END 2024-08-09 11:58 | disposition home or self-care (01) ==
LOC: HO.CHCLDS 11:57
PROVIDERS: Visit Provider Pediatrics
DX: E11.43 Type 2 diabetes mellitus with diabetic autonomic (poly)neuropathy (principal); R35.89 Other polyuria; Z79.4 Long term (current) use of insulin; Z12.5 Encounter for screening for malignant neoplasm of prostate
CPT/HCPCS: 36415; 80048; 80061; 80076; 82550; 82607; 82746; 84153; 84443; 85025